=== PATIENT | female | born 1975 | race Caucasian/White ===

== ENCOUNTER → 2021-06-30 07:10 | Outpatient (CLI) | payer OTHER, SELFPAY ==
[2021-06-30 20:28] LABS: SARS-CoV-2 RNA PCR Negative
== END ==
PROVIDERS: PCP Nurse Practitioner Family; Visit Provider Nurse Practitioner Family
DX: J06.9 Acute upper respiratory infection, unspecified (principal); Z20.822 Contact with and (suspected) exposure to COVID-19
CPT/HCPCS: C9803; U0003; U0005

== ENCOUNTER 2022-01-26 16:37 | Outpatient (CLI) | payer OTHER, SELFPAY ==
--- NOTE | ~2022-01-26 | MM_ITS ---
EXAMINATION: MM screening denita BI w darby HISTORY: Screening TECHNIQUE: Craniocaudal and mediolateral oblique 3-D tomosynthesis images were obtained and synthetic 2-D images were generated. CAD analysis was submitted and interpreted. COMPARISON: No prior mammogram is available for comparison at this institution. BREAST PARENCHYMAL COMPOSITION: The breasts are extremely dense, which lowers the sensitivity of mamm ography. FINDINGS: There is no evidence of suspicious mass, calcification, or architectural distortion to sugg est malignancy in either breast. There has been no suspicious interval change. IMPRESSION: 1. No mammographic evidence of malignancy. 2. Recommend routine screening mammography in one year. BI-RADS Category 1: Negative Reviewed, dictated and finalized at location A.
== END 2022-01-26 16:38 | disposition home or self-care (01) ==
LOC: ANHIMG 16:38
PROVIDERS: PCP Nurse Practitioner Family; Visit Provider Nurse Practitioner Obstetrics & Gynecology
DX: Z12.31 Encounter for screening mammogram for malignant neoplasm of breast (principal)
CPT/HCPCS: 77063; 77067

== ENCOUNTER 2024-12-31 14:31 | Emergency (ER) | payer OTHER, SELFPAY ==
[2024-12-31 14:38] VITALS: BP 120/75; PULSE 88; RESP 20; TEMP 36.6; O2SAT 98
--- NOTE | 2024-12-31 14:54 | ED.SKABFB ---
HPI - Skin/Abscess/Foreign Bdy General Chief complaint: Skin/Abscess/Foreign Body Stated complaint: Rash on Arm Time Seen by Provider: 12/31/24 14:55 Source: patient and RN notes reviewed Mode of arrival: ambulatory Limitations: no limitations History of Present Illness HPI narrative: 49-year-old female presents with concern for a red area on her right upper arm. Reports that started as an itchy spot on Tuesday in the became so more swollen, hard, red. She noticed today it was warm. She has applied hydrocortisone and Benadryl spray without relief. She denies fever, body aches, chills, sweats. Denies fluctuation or drainage. MD complaint: other (redness) Related Data Home Medications ?Medication ?Instructions ?Recorded ?Confirmed ?Last Taken ?Type levocetirizine 5 mg tablet mg 12/31/24 Unknown History omeprazole 40 mg capsule,delayed mg 12/31/24 Unknown History release venlafaxine 75 mg capsule,extended mg PO 12/31/24 Unknown History release 24 hr Allergies Allergy/AdvReac Type Severity Reaction Status Date / Time Dermabond Allergy Unknown Unknown Uncoded 12/31/24 14:42 Review of Systems Review of Systems: CONSTITUTIONAL: Denies malaise, chills, sweats, or fever. EYES: Denies redness, or discharge. ENT: Denies rhinorrhea, congestion, swollen lips, swollen tongue CARDIOVASCULAR: Denies chest pain, palpitations, or edema. RESPIRATORY: Denies cough or dyspnea. GASTROINTESTINAL: Denies abdominal pain, nausea, vomiting SKIN: Reports red, warm, tender spot on her right arm MUSCULOSKELETAL: Denies joint pain or myalgia. NEUROLOGIC: Denies headache. All systems reviewed & are unremarkable except as noted in HPI and below PMFSH Comments At time of signature, agree with nursing past medical, surgical, social and family history. There is no relevant family history pertinent to the presenting complaint Exam Narrative: GENERAL: Well-appearing, well-nourished, and in no acute distress. HEAD: Normocephalic, atraumatic. EYES: PERRLA, conjunctivae clear, and EOMI. ENT: Mucous membranes moist. Oropharynx without edema, erythema or lesions. NECK: Supple. No lymphadenopathy CHEST: Clear to auscultation. No respiratory distress. HEART: Regular rate and rhythm. SKIN: Warm, dry. Proximally 5 cm area in diameter of redness, warmth, mild induration and tenderness noted to the right upper arm, no fluctuation noted NEURO: Alert and oriented x3. PSYCH: Normal mood and affect Course Course Emergency Course: Patient is aware of diagnosis, understands and agrees to treatment plan. Anticipatory guidance given. Patient agrees to follow-up as directed and is aware of reasons to seek care at the emergency department. Portions of this record may have been created with voice recognition software Level of Care: Express Care Visit Vital Signs Vital signs: Vital Signs Temperature 97.8 F 12/31/24 14:38 Pulse Rate 88 12/31/24 14:38 Respiratory Rate 20 12/31/24 14:38 Blood Pressure 120/75 12/31/24 14:38 Pulse Oximetry 98 12/31/24 14:38 Oxygen Delivery Room Air 12/31/24 14:38 Temperature 97.8 F 12/31/24 14:38 Pulse Rate 88 12/31/24 14:38 Respiratory Rate 20 12/31/24 14:38 Blood Pressure 120/75 12/31/24 14:38 Pulse Oximetry 98 12/31/24 14:38 Oxygen Delivery Room Air 12/31/24 14:38 Reviewed. MDM - Skin/Abscess/Foreign Bdy MDM Narrative Medical decision making narrative: Does not appear at this time to be erythema multiforme, bullous, SJS, TEN; no evidence at this time to suggest RMSF, endocarditis or Lyme disease; patient looks well, nontoxic and is tolerating oral intake; no neurologic signs or symptoms; no headache, photophobia or neck pain; afebrile; appropriate for initial outpatient treatment; discussed the importance of follow-up, patient agrees; question, viral exanthema, contact dermatitis, allergic dermatitis, eczema, urticaria, cellulitis, abscess. No soft palate or uvula edema, no tongue, lip edema or other mucosal involvement, no respiratory compromise, no stridor, no wheezing, no wheezing, no history of syncope, no hypotension, no nausea, vomiting, or diarrhea. Instructed patient to go to nearest ER immediately for any worsening symptoms including but not limited to: fever, spreading rash, pain, sore throat, headache, dizziness, chest pain, trouble breathing, or any symptoms concerning to the patient. Critical Care Time Critical Care Time Critical Care Time: No Discharge Plan Discharge Clinical Impression: Cellulitis Patient Disposition: Home Condition: Stable Instructions: Antibiotic Form, Cellulitis (ED) Additional Instructions: Please follow up with your Primary Care Doctor within 48-72 hours - call for an appointment. Rest and elevate affected area; apply moist heat 3-4 times daily for 10-15 minutes. Take Motrin 600mg every 8 hours with food for pain. Please take Antibiotics as directed. If you experience any worsening redness, swelling, streaking (red lines), fever or chills please go to the ER Patient Language: Kazakh Prescriptions: New penicillin V potassium 500 mg tablet 500 mg PO Q12H 10 Days Qty: 20 0RF No Action venlafaxine 75 mg capsule,extended release 24hr PO omeprazole 40 mg capsule,delayed release(DR/EC) levocetirizine 5 mg tablet Follow-up/Referrals: Andrea,Monlaisa Kirkpatrick APN [Primary Care Provider] - Time of Disposition: 14:58
--- OUTSIDE RECORDS SUMMARY | 2024-12-31 15:41 | XMS_ITS | Clinical Summary ---
Author Organization [facility] [employer] Address [address] [place] [address] Care Team Providers Care Road Conductor Name Role Phone Elsy Mishra Idris ALONSO-AGILE TESTER Primary Care Provider Source Comments [facility],non-owned Affiliates and Associated Physician Practices is amultiple site organization consisting of ambulatory clinics and hospital sitesin [place], [place], [place] and [place]. This disclosure is being madepursuant to the Care Everywhere program and may not contain all information available regarding this patient. Last updated 18.[facility] Allergies Active Allergy Reactions Criticality Noted Date Comments Allergy Urticaria,Rash Medium 11/02/2016 Surgical Glue/Dermabond Medications * Be aware that medications may not be up to date on this document. Alwaysverify current medications with the patient. Calcium Carb-Cholecalcif ye 600-800 MG-UNIT Take 1 tablet by mouth once daily 3 Active diphenhydrAMINE (Benadryl) 25 MG capsule Take 25 mg by mouth every 6 hours as needed Active estradiol (ESTRACE) 1 MG tablet Take 1 mg by mouth once daily 5 8 Active estrogens, conjugated, (Premarin) 0.625 MG/GM vaginal cream Insert 1 Dose into the vagina as needed 8 Active fluticasone propionate (FLONASE) 50 MCG/ACT nasal spray [place] 1 spray into each nostril 2 times daily as needed 8 Active vedolizumab (Entyvio) injection 300 mg by Intravenous route Every 8 Weeks Active clobetasol (TEMOVATE) 0.05 % gel Apply to affected area once daily as needed 7 Active Bioflavonoid Products (BIOFLEX PO) once daily Active B Complex Vitamins (VITAMIN B COMPLEX PO) Take by mouth once daily 7 Active acyclovir (ZOVIRAX) 400 MG tablet 0 Active benzonatate (TESSALON) 100 MG capsule TAKE 1 CAPSULE BY MOUTH THREE TIMES A DAY NEEDED 0 Active cetirizine (ZYRTEC) 10 MG tablet Take 10 mg by mouth once daily 0 Active colestipol (COLESTID) 1 GM tablet Take 2 (two) tablets by mouth 3 times daily Max per day : 8 tabs 240 tablet 5 1 Active estradiol (CLIMARA) 0.025 MG/24HR patch estradiol 0.025 mg/24 hr weekly transdermal patch APPLY 1 PATCH TO THE SKIN ONCE WEEKLY (REMOVE OLD PATCH PRIOR TO APPLYING NEW PATCH) Active ibuprofen (MOTRIN) 200 MG tablet Take 200 mg by mouth every 6 hours as needed Active Melatonin 10 MG Acti ve fish oil/omega-3 fatty acids (PROMEGA;CARDI-O GABY 3) 1000 MG capsule Take 2 g by mouth once daily Active colestipol (COLESTID) 1 GM tablet Take 2 g by mouth once daily 1 Active polyethylene glycol (GOLYTELY) 236 g solution Drink 1/2 of prep at 6pm the night before test. Finish the prep at 4 am the morning of colonoscopy. 4000 mL 2 Active diphenoxylate-at ropine (LOMOTIL) 2.5-0.025 MG tabletIndication s:Other ulcerative colitis with complication (HCC) Take 2 (two) tablets by mouth 4 times daily as needed for Diarrhea 240 tablet 1 2 Active Active Problems Problem Noted Date Diagnosed Date UC (ulcerative colitis) 10/03/2018 Immunizations Immunization Administration Dates Next Due FLU VACCINE TRI IIV3 SPLIT P F IM (FLUVIRIN) 06/09/2017,06/24/2015,05/07/2014,2012 INFLUENZA VACCINE, QUADR. (F LUZONE; FLULAVAL; FLUARIX; AFLURIA QUADRIVALENT; 6MO+), 0.5 ML (IIV4) 09/17/2020 PNEUMOCOCCAL PPSV23 11/13/2021,06/28/2013 Pneumococcal Pcv13 Conj 12/02/2016 Family History Medical History Relation Name Comments Hypertension Father Cancer - Breast Maternal Grandmother Cancer - Colon Maternal Uncle COPD - Chronic Obstructive Pulmonary Disease Mother Osteoporosis Mother Relation Name Status Comments Brother 1 Alive Brother 2 Alive Father Alive Maternal Grandmother Maternal Uncle Mother Alive Sister Alive Social History Tobacco Use Types Packs/Day Years Used Date Smoking Tobacco: Never Smokeless Tobacco: Never Alcohol Use Standard Drinks/Week Comments Yes 1 (1 standard drink = 0.6 oz pur e alcohol) once a week Comments No Sex and Gender Information Value Date Recorded Sex Assigned at Not on file Legal Sex 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 Gender Identity Not on file Sexual Orientation Not on file Last Filed Vital Signs Vital Sign Reading Time Taken Comments Blood Pressure 98/56 02/25/2022 12:00 PM CDT Pulse 88 02/25/2022 12:00 PM CDT Temperature 36.7 C (98 F) 02/25/2022 11:30 AM CDT Respiratory Rate 10 02/25/2022 12:00 PM CDT Oxygen Saturation 98% 02/25/2022 12:00 PM CDT Inhaled Oxygen Concentration - - Weight 57.7 kg (127 lb 3.2 oz) 02/25/2022 9:34 A M CDT Height 167.6 cm (5' 6) 02/25/2022 9:34 AM CDT Body Mass Index 20.53 02/25/2022 9:34 AM CDT Plan of Treatment Health Maintenance Due Date Last Done Comments COLOGUARD (AGES 45-75) - COLON CA SCREENING 1973 CT COLONOGRAPHY - COLON CA SCREENING 1973 FIT - COLON CA SCREENING 1973 FLEX SIG - COLON CA SCREENING 1973 MAMMOGRAM 1973 PAP SMEAR 1973 HIV SCREENING 1988 HEPATITIS C SCREENING 08/24/1991 DTAP/TDAP/TD VACCINES (1 - Tdap) 1992 HEPATITIS B VACCINE (1 of 3 - 19+ 3-dose series) 1992 ZOSTER VACCINE (1 of 2) 2023 COVID-19 VACCINE (1 - 2023-25 season) 2024 DEPRESSION SCREENING 07/25/2024 INFLUENZA VACCINE (Season Ended) 2025 09/17/2020, 06/09/2017, 06/24/2015, Additional history exists LIPID TESTING 09/01/2026 09/01/2021 PNEUMOCOCCAL VACCINE 50+ (3 of 3 - PCV20 or PCV21) 11/13/2026 11/13/2021, 12/02/2016, 06/28/2013 COLON MONITORING 05/17/2029 05/17/2019, 05/17/2019 COLONOSCOPY - COLON CA SCREENING 05/17/2029 05/17/2019, 05/17/2019 Colorectal Cancer Screening 05/17/2029 HIB VACCINE Aged Out No longer eligi ble based on patient's age to complete this topic HPV VACCINE Aged Out No longer eligi ble based on patient's age to complete this topic MENINGOCOCCAL (Group B) VACCINE SHARED DECISION-MAKING Aged Out No longer eligible based on patient's age to complete this topic MENINGOCOCCAL GROUPS A/C/Y/W VACCINE Aged Out No longer eligible based on patient's age to complete this topic Goals Goal Patient Goal Type Associated Problems Recent Progress Patient-Stated? Author Medication Management General On track( 022 2:49 PM CDT) Rhoda Cleary, RN Note: Expected end date: ongoing Interventions: Take all medications as prescribed Let your doctor know right away about any changes in your medications Make sure to request a refill of your medication at least one week prior to your last dose Procedures Procedure Name Priority Date/Time Associated Diagnosis Comments ENDOSCOPY, COLON, DIAGNOSTIC Routine 05/17/2019 1:22 PM CDT from Last 3 Months or Most Recently Relevant to Health Maintenance Results * ENDOSCOPY, COLON, DIAGNOSTIC (05/17/2019 1:22 PM CDT) Report Endoscopy POC Endoscopy Department Report _ Patient Name: Js Llamas Procedure Date: 05/17/2019 1:22 PM Date of : 1975 Classification: Outpatient Gender: Female Ethnicity: Not or Race: White _ Providers: Pricilla Hernandez MD Referring MD: Procedure: Flexible Sigmoidoscopy Indications: Personal history of ulcerative colitis Medications: Monitored Anesthesia Care Description of Procedure: Pre-Anesthesia Assessment: - Prior to the procedure, a History and Physical was performed, and patient medications and allergies were reviewed. The patient's tolerance of previous anesthesia was also reviewed. The risks and benefits of the procedure and the sedation options and risks were discussed with the patient. All questions were answered, and informed consent was obtained. Prior Anticoagulants: The patient has taken no previous anticoagulant or antiplatelet agents. ASA Grade Assessment: II - A patient with mild systemic disease. After reviewing the risks and benefits, the patient was deemed in satisfactory condition to undergo the procedure. After obtaining informed consent, the endoscope was passed under direct vision. Throughout the procedure, the patient's blood pressure, pulse, and oxygen saturations were monitored continuously. The [id number]-[id number] was introduced through the anus and advanced to the ileo-rectal anastomosis. The flexible sigmoidoscopy was accomplished without difficulty. The patient tolerated the procedure well. The quality of the bowel preparation was good. Findings: The 2cm rectal cuff had a single ulcer with surrounding polyposis. biopsied The ileal pouch appeared healthy and normal. Biopsied. Estimated Blood Loss: Estimated blood loss was minimal. Complications: No immediate complications. Impression: - Ulcerative colitis Cufitis. biopsied - Normal appearing ileal pouch. biopsied Recommendation: - Await path - [facility] Attending Participation: I personally performed the entire procedure. Procedure Code(s): --- Professional --- 49381, Sigmoidoscopy, flexible; with biopsy, single or multiple Diagnosis Code(s): --- Professional --- K51.90, Ulcerative colitis, unspecified, without complications Z87.19, Personal history of other diseases of the digestive system CPT copyright 2016 [employer]. All rights reserved. The codes documented in this report are preliminary and upon acoustical tile drill press operator review may be revised to meet current compliance requirements. __ Pricilla Hernandez MD 05/17/2019 2:30:10 PM Note Initiated On: 05/17/2019 1:22 PM Number of Addenda: 0 [facility] [address] [place] [address] [facility] 05/17/2019 1:22 PM CDT us Pricilla Hernandez MD GI PROCEDURE ORDERABLES E dited Result - Final [facility] [employer] from Last 3 Months or Most Recently Relevant to Health Maintenance Insurance MEDICAID - [employer] MEDICAID - OUT OF STATE Care Teams Road Conductor Relationship Specialty Start Date End Date Elsy Mishra, TELESALES ADVISOR-AGILE TESTER [address] [facility] [address] Patel [address] [place] [address] [phone] PCP - General 11/12/21
--- OUTSIDE RECORDS SUMMARY | 2024-12-31 15:41 | XMS_ITS | Encounter Summary ---
Author Organization [facility] Address [address] [place] [address] Phone Care Team Providers Care Government Sales Manager Name Role Phone Pricilla Hernandez MD Unavailable [phone] Monalisa Mendez NP Primary Care Provider [phone] Encounter Details Date Type Department Care Team (Late st Contact Info) Description 12/24/2024 Results Follow-Up [facility] Gastroenterology [address] [facility] [facility] 12[address] [place] [address] [place] [address] Jose Rajput MD [address] [place] [address] Surgical pathology Social History Tobacco Use Types Packs/Day Years Used Date Smoking Tobacco: Never Smokeless Tobacco: Never Alcohol Use Standard Drinks/Week Comments Yes 0 (1 standard drink = 0.6 oz pur e alcohol) socially AUDIT-C Answer Date Recorded Q1: How often do you have a drink containing alc ohol? 2-4 times a month 12/21/2024 Q2: How many drinks containi ng alcohol do you have on a typical day when you are drinking? 1 or 2 12/21/2024 Q3: How often do you have si x or more drinks on one occasion? Never 12/21/2024 Personal Safety Answer Date Recorded Have you ever been in or are you currently in a harmful physical or emotional relationship or is someone making you feel afraid or unsafe? Denies 12/21/2024 Comments No Sex and Gender Information Value Date Recorded Sex Assigned at Not on file Legal Sex Female 12:19 AM VIDEO PRODUCTION INTERN Gender Identity Not on file Sexual Orientation Not on file documented as of this encounter Miscellaneous Notes * Result Encounter Note - Jose Rajput MD - 12/24/2024 3:24 PM CDT Pouch biopsies are essentially normal. Repeat in 3 years. EGD shows reflux changes. Use PPI as prescribed. documented in this encounter Plan of Treatment Not on file documented as of this encounter Visit Diagnoses Not on filedocumented in this encounter Care Teams Government Sales Manager Relationship Specialty Start Date End Date Mendez, Monalisa Hess NP [address] [place] [address] PCP - General 02/05/21 Pricilla Hernandez MD Referring Physician Gastroenterology 08/21/18 documented as of this encounter
--- OUTSIDE RECORDS SUMMARY | 2024-12-31 15:41 | XMS_ITS | Clinical Summary ---
Author Organization [facility] al Address [address] [place] [address] Care Team Providers Care Photographic Process Attendant Name Role Phone Pricilla Hernandez MD Unavailable [phone] Monalisa Mendez NP Primary Care Provider [phone] Allergies Active Allergy Reactions Criticality Noted Date Comments Unclassified Drug Hives,Rash High 11/02/2016 Surgical Glue/Dermabond Medications vit A-[id number] mg tablet daily. Active calcium carbonate-vitami n D3 1,500 mg (600 mg elemental)-800 unit tablet,chewable 2 times daily. 013 Active colestipol (COLESTID) 1 gram tablet TAKE ONE TABLET BY MOUTH UP TO THREE TIMES A DAY 017 Active PREMARIN vaginal cream 5 018 Active hyoscyamine (LEVSIN) 0.[address] 1 tablet (0.125 mg total) under the tongue every 4 hours as needed Active valACYclovir (VALTREX) 1 gram tablet TAKE 1 TABLET(S) EVERY 12 HOURS BY ORAL ROUTE FOR 5 DAYS. 017 Active cholecalciferol (VITAMIN D-3) 2000 unit capsule PT STATES SHE TAKES 8444-9680 UNITS DAILY Active olopatadine (PATADAY) 0.2 % ophthalmic solutionIndicati ons:Allergic rhinitis, unspecified seasonality, unspecified trigger Administer 1 drop into both eyes daily. 2.5 mL 11 019 Active Additional Information Patient not taking.Reported on 10/30/2024 estradiol (ESTRACE) 1 mg tablet Take 1 tablet (1 mg total) by mouth daily Active cetirizine (ZyrTEC) 10 mg tablet Take 1 tablet (10 mg total) by mouth daily as needed for allergies Active diphenhydrAMINE (BENADRYL) 25 mg capsule Take 1 tablet/capsule (25 mg total) by mouth every 6 (six) hours as needed for itching Active sodium chloride (OCEAN) 0.65 % nasal spray Administer 2 sprays into each nostril 4 (four) times a day. 104 mL 019 Active methylPREDNISolo ne (MEDROL DOSEPACK) 4 mg Dosepack follow package directions 21 tablet 019 Active Additional Information Patient not taking.Reported on 11/15/2024 traMADol (ULTRAM) 50 mg tablet Take 1 tablet (50 mg total) by mouth every 6 (six) hours 20 tablet 019 Active cephalexin (KEFLEX) 500 mg capsule TAKE 1 PILL BY MOUTH 3 TIMES DAILY 023 Active venlafaxine XR (EFFEXOR-XR) 37.5 mg 24 hr capsule Take by mouth daily 022 Active mesalamine (CANASA) 1,000 mg suppositoryIndic ations:Ulcerativ e Proctitis Insert 1 suppository (1,000 mg total) into the rectum nightly for 14 days 14 suppository 023 Active loperamide (IMODIUM A-D) 2 mg tablet Take 2 tablets (4 mg total) by mouth 4 (four) times a day 240 tablet 5 023 Active fluticasone propionate (FLONASE) 50 mcg/actuation nasal spray 023 Active nystatin-triamci nolone ointmentIndicati ons:cutaneous candidiasis Apply topically 2 (two) times a day as needed (perianal skin rash) 15 g 024 Active hydrocortisone (ANUSOL-HC) 25 mg suppositoryIndic ations:Chronic ulcerative proctitis without complications (HCC) Nightly for 5 days then every other day 12 suppository 024 Active vedolizumab (ENTYVIO) 300 mg recon solnIndications: Chronic ulcerative proctitis without complications (HCC) Infuse 5 mL (300 mg total) into a venous catheter every 6 (six) weeks Infused at: [facility] 5 mL 2 024 Active diphenoxylate-at ropine (LOMOTIL) 2.5-0.025 mg per tabletIndication s:Chronic ulcerative proctitis without complications (HCC) Take 2 tablets by mouth 4 (four) times a day as needed for diarrhea 240 tablet 024 Active levocetirizine (XYZAL) 5 mg tablet 025 Active venlafaxine XR (EFFEXOR-XR) 75 mg 24 hr capsule 025 Active naproxen (NAPROSYN) 500 mg tablet 025 Active omeprazole (PriLOSEC) 40 mg capsule Take 1 capsule (40 mg total) by mouth daily 30 capsule 3 025 Active omeprazole (PriLOSEC) 40 mg capsule Take 1 capsule (40 mg total) by mouth daily 3 018 2024 Discontinued Active Problems Problem Noted Date Diagnosed Date Rectal cuffitis 10/30/2024 Assessment & Plan (10/30/2024 5:38 PM CDT): We will get the patient scheduled for a repeat pouchoscopy as she has not had a procedures since her dose was adjusted . This will also allow us to see if there is a reason for her bloating. We may need to adjust her antidiarrheal regimen if pouchoscopy is reassuring. Esophageal dysphagia 10/30/2024 Assessment & Plan (10/30/2024 5:35 PM CDT): . The patient reports bloating, nausea, cough and early satiety. We will repeat an EGD at the same time as her pouchoscopy. If there are no obvious findings, it may be reasonable to repeat a gastric emptying study as she had mild gastroparesis in the past. She is encouraged to eat small meals more frequently Chronic cough 10/30/2024 Assessment & Plan (10/30/2024 5:37 PM CDT): We will see if the patient has any GERD findings on her EGD. If no she may wish she returned to her PCP and ENT for evaluation. Screening for viral disease 05/17/2024 High risk medications (not anticoagulants) long- term use 05/01/2024 Assessment & Plan (10/30/2024 5:35 PM CDT): We will continue to monitor her labs with her infusions. Assessment & Plan (05/01/2024 3:08 PM CDT): All immunosuppressants carry a theoretical risk of infection, though vedolizumab appears the safest because it is gut specific. We recommend the patient get all available vaccinations, including the pneumococcus series, covid19 and annual influenza. We monitor CBC and HFP q 3 months for cytopenias and hepatotoxicity. Sprain of deltoid ligament of right ankle 2018 Pelvic pain 08/02/2018 Allergic rhinitis 07/28/2018 Assessment & Plan (09/26/2018 1:17 PM PHYSIATRIST): Sinus Rinse followed by Flonase 2 sprays into each nostril while looking down over the sink, do not sniff in or blow nose after use. Follow up in 2 months Consider Zyrtec daily (cetirizine) 10 mg daily Assessment & Plan (07/28/2018 1:58 PM PHYSIATRIST): CT Sinus per [facility] Protocol Try to continue Flonase Start cetirizine 10 mg daily Pataday one drop into each eye before using contacts then change to milder contact solution Warm compresses to neck or heating pad that has been turned off Chronic sphenoidal sinusitis 06/23/2018 Assessment & Plan (09/26/2018 1:16 PM PHYSIATRIST): Sinus Rinse followed by Flonase 2 sprays into each nostril while looking down over the sink, do not sniff in or blow nose after use. Follow up in 2 months Consider Zyrtec daily (cetirizine) 10 mg daily Assessment & Plan (09/15/2018 1:50 PM PHYSIATRIST): Finish Antibiotics Continue nasal saline 4 times daily and as needed Increase hydration Sinus Rinse at least once if not twice daily. Follow up in one week Assessment & Plan (07/28/2018 1:58 PM PHYSIATRIST): CT Sinus per [facility] Protocol Try to continue Flonase Start cetirizine 10 mg daily Pataday one drop into each eye before using contacts then change to milder contact solution Warm compresses to neck or heating pad that has been turned off Assessment & Plan (06/23/2018 7:14 PM PHYSIATRIST): Flonase 2 sprays into each nostril while looking down over the sink, do not sniff in or blow nose after use. Unable to get in touch by either phone number to Dr. 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 Year symptoms began: 2007. Distribution: Extensive (E3). Extraintestinal manifestations: none. Complications: medically refractory disease. 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 Current treatment: vedolizumab q 6. 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 diagnosed in December of 2007, previously treated with Humira (primary nonresponse), 6-MP (no improvement), azathioprine (poorly tolerated), Pentasa and topical mesalamine (limited response) and multiple courses of steroids and ultimately underwent a total proctocolectomy with a J-pouch in early 2014. After her J-pouch she had some mild symptoms of pouchitis and cuffitis that were treated with Xifaxan, Flagyl, and Canasa with partial response. On her 2015 pouchoscopy patient had a normal perianal exam and had a 3 cm cuff that unfortunately demonstrated significant cuffitis and was correlated with her symptoms of hematochezia and discomfort in her pouch. The patient was started on Entyvio November 2016, and her most recent pouchoscopy done in April of 2017 demonstrated a normal pouch, and an MRE that was done in April of 2017 also demonstrated a completely normal small bowel as well as a pouch. Her flexible sigmoidoscopy in March 03, 2022 had shown some mild distal cuffitis. Symptomatically she felt like she was losing responsiveness in 2021. Her vedolizumab trough level in August 2022 was 22. Her most recent pouchoscopy from 05/27/2023 showed a normal pouch and pre pouch ileum but fairly significant cuffitis. 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 She has had recurrent symptoms of cuffitis and pouchitis since including hematochezia, discomfort, bloating, cramping, and urgency. She is currently on vedolizumab infusions - frequency was recently decreased to every 6 weeks in sight of breakthrough disease activity. Her most recent pouchoscopy (05/27/2024) was notable for significant cuffitis, normal pouch and pre-pouch ileum. Currently she states that her symptoms are better controlled, her urgency has entirely resolved. She has mild cramping and bloating which she attributes to familial stressors. Her next infusion is scheduled for 05/03/2024, denies any complications or concerns post infusion. Plan: Continue q6 week vedolizumab infusions with in person follow up in 6 months Encounters Date Type Department Care Team Description 12/24/2024 3:15 PM CDT Therapy [facility] [place] [address] [id number] Gema Hinson, PT Chronic bilateral low back pain with bilateral sciatica (Primary Dx); Sciatica, right side 12/24/2024 Plan of Care Documentation [facility] [place] [id number] 12/24/2024 Results Follow-Up [facility] [address] [place] [address] [place] [address] Jose Rajput MD Surgical pathology 12/21/2024 12:00 PM CDT - 12/21/2024 1:00 PM CDT Surgery [facility] [id number] [address] [place] [id number] Jose Rajput MD POUCHOSCOPY BIOPSY 12/21/2024 11:10 AM CDT Anesthesia Event [facility] [id number] [address] [place] [address] Arnulfo Ojeda MD 12/21/2024 10:39 AM CDT - 12/21/2024 12:24 PM CDT Hospital Encounter [facility] [id number] [place] [id number] Jose Rajput MD Rectal cuffitis; Esophageal dysphagia; Chronic cough Discharge Disposition: Discharge to home or self care 12/12/2024 1:00 PM CDT Infusion [facility] [address] [place] [address] High risk medications (not anticoagulants) long-term use (Primary Dx); Chronic ulcerative proctitis with complication (HCC) 11/12/2024 4:34 PM CDT - 11/12/2024 11:59 PM CDT Hospital Encounter [address] [address] Sciatica, left side Discharge Disposition: Discharge to home or self care 10/31/2024 1:00 PM CDT Infusion [facility] [address] [place] [address] Chronic ulcerative proctitis with complication (HCC) (Primary Dx) 10/30/2024 8:30 AM CDT Office Visit [facility] [address] [place] [phone] Keturah Helm NP Rectal cuffitis (Primary Dx); Esophageal dysphagia; Chronic cough; High risk medications (not anticoagulants) long-term use 10/24/2024 7:10 AM CDT Lab [address] [address] Chronic ulcerative proctitis with complication (HCC); High risk medications (not anticoagulants) long-term use; Screening for viral disease 10/09/2024 Orders Only [facility] [address] [place] [address] [address] [place] [address] Megha Cline RN from Last 3 Months Immunizations Immunization Administration Dates Next Due Influenza, Quadrivalent, Hig h Dose, Preservative Free, Intrr 09/08/2022 Influenza, Trivalent, Preser vative Free, Intramuscular 06/09/2017,06/24/2015,05/07/2014,06/28 Pneumococcal Conjugate PCV 13 12/02/2016 Pneumococcal Polysaccharide PPV23 06/28/2013 Surgical History Surgery Date Site/Laterality Comments COLON SURGERY 07/25/2014 - 07/24/2015 CHOLECYSTECTOMY ABDOMINAL SURGERY HYSTERECTOMY EYE SURGERY Lasik COLONOSCOPY SINUS SURGERY 07/25/2018 - 07/24/2019 Medical History Medical History Date Comments Ulcerative colitis without c omplications (HCC) Ulcerative colitis without complications, unspecified location - (Added by TW Conv) Ulcerative colitis without c omplications (HCC) Ulcerative pancolitis - (Add ed by TW Conv) Anemia Pancreatitis Chronic diarrhea Family History Medical History Relation Name Comments Brain cancer Maternal Grandfather Brain t umor - (Added by TW Conv) Cancer Maternal Grandfather Family history of malignant neoplasm - (Added by TW Conv) Lung cancer Maternal Grandfather Family history of lung cancer - (Added by TW Conv) Prostate cancer Maternal Grandfather Fami ly history of malignant neoplasm of prostate - (Added by TW Conv) Skin cancer Maternal Grandfather Family history of skin cancer - (Added by TW Conv) Brain cancer Maternal Grandmother Brain t umor - (Added by TW Conv) Stroke Maternal Grandmother Family history of cerebrovascular accident - (Added by TW Conv) Cancer Mother Family history of malignant neoplasm - (Added by TW Conv) Osteoporosis Mother Family history of osteoporosis - (Added by TW Conv) Colon cancer Mother's Brother 1 Family hi story of colon cancer - 11/08/13-EW (Added by TW Conv) Prostate cancer Mother's Brother 2 Family history of malignant neoplasm of prostate - (Added by TW Conv) Lung cancer Mother's Brother 3 Family hi story of lung cancer - (Added by TW Conv) Brain cancer Mother's Brother 4 Brain elizabeth or - (Added by TW Conv) Hypertension Paternal Grandmother Family history of hypertension - (Added by TW Conv) Stroke Paternal Grandmother Family history of cerebrovascular accident - (Added by TW Conv) Relation Name Status Comments Maternal Grandfather Maternal Grandmother Mother Mother's Brother 1 Mother's Brother 2 Mother's Brother 3 Mother's Brother 4 Paternal Grandmother Social History Tobacco Use Types Packs/Day Years [...] on file Legal Sex Female 12:19 AM PHYSIATRIST Gender Identity Not on file Sexual Orientation Not on file Obstetrics History Last Filed Vital Signs Vital Sign Reading Time Taken Comments Blood Pressure 120/88 12/21/2024 12:10 PM CDT Pulse 75 12/21/2024 12:10 PM CDT Temperature 36.3 C (97.3 F) 12/21/2024 11:39 AM CDT Respiratory Rate 26 12/21/2024 12:10 PM CDT Oxygen Saturation 100% 12/21/2024 12:10 PM CDT Inhaled Oxygen Concentration - - Weight 67.6 kg (149 lb) 12/21/2024 10:47 AM CDT Height 167.6 cm (5' 6) 12/21/2024 10:47 AM CDT Body Mass Index 24.05 12/21/2024 10:47 AM CDT Plan of Treatment Health Maintenance Due Date Last Done Comments Depression Screening 1975 Hepatitis C Screening 1975 DTaP/Tdap/Td Vaccine (1 - Tdap) 1984 Regular Well Visit/Exam 18-64 1991 Breast Cancer Screening-Mammogram 02/09/2023 02/09/2022, 10/18/2017, 09/07/2016 Zoster Vaccine (1 of 2) 2023 Covid-19 Vaccine ( - season) 2024 07/10/2021, 10/18/2020, 09/20/2020 Colon Cancer Screening-Colonoscopy 07/24/2024 07/24/2014, 09/14/2012 Influenza Vaccine (Season Ended) 2025 09/08/2022, 07/10/2021, 09/17/2020, Additional history exists Pneumococcal vaccine <65 Aged Out 022, 12/02/2016, 06/28/2013 No longer eligible based on patient's age to complete this topic Hepatitis B Screening Completed 10/24/2024 Procedures Procedure Name Priority Date/Time Associated Diagnosis Comments POUCHOSCOPY 12/21/2024 11:24 AM CDT SURGICAL PATHOLOGY Routine 12/21/2024 11:20 AM CDT Rectal cuffitis Esophageal dysphagia Chronic cough ESOPHAGOGASTRODUODENOSCOPY BIOPSY 12/21/2024 11:10 AM CDT Rectal cuffitis Esophageal dysphagia Chronic cough POUCHOSCOPY BIOPSY 12/21/2024 11:10 AM CDT Rectal cuffitis Esophageal dysphagia Chronic cough EGD 12/21/2024 11:06 AM CDT EGFR Routine 12/12/2024 1:05 PM CDT High risk medications (not anticoagulants) long-term use Chronic ulcerative proctitis with complication (HCC) DIFFERENTIAL AUTO Routine 12/12/2024 1:05 PM CDT CBC WITH AUTO DIFFERENTIAL Routine 12/12 1:05 PM CDT COMPREHENSIVE METABOLIC PANEL Routine 1:05 PM CDT High risk medications (not anticoagulants) long-term use Chronic ulcerative proctitis with complication (HCC) CRP (ACUTE PHASE) Routine 12/12/2024 1:05 PM CDT Chronic ulcerative proctitis with complication (HCC) XR SPINE LUMBAR 2 OR 3 VIEWS Schedule Routine, Read Routine (OP Routine) 11/12/2024 4:43 PM CDT Sciatica, left side EGFR Routine 10/24/2024 7:20 AM CDT High risk medications (not anticoagulants) long-term use Chronic ulcerative proctitis with complication (HCC) DIFFERENTIAL AUTO Routine 10/24/2024 7:20 AM CDT High risk medications (not anticoagulants) long-term use Chronic ulcerative proctitis with complication (HCC) TB TEST, QUANTIFERON GOLD Routine 2024 7:20 AM CDT CBC WITH AUTO DIFFERENTIAL Routine 10/24 7:20 AM CDT High risk medications (not anticoagulants) long-term use Chronic ulcerative proctitis with complication (HCC) COMPREHENSIVE METABOLIC PANEL Routine 7:20 AM CDT High risk medications (not anticoagulants) long-term use Chronic ulcerative proctitis with complication (HCC) CRP (ACUTE PHASE) Routine 10/24/2024 7:20 AM CDT Chronic ulcerative proctitis with complication (HCC) HEPATITIS B CORE ANTIBODY, TOTAL Routine 10/24/2024 7:20 AM CDT High risk medications (not anticoagulants) long-term use Chronic ulcerative proctitis with complication (HCC) Screening for viral disease HEPATITIS B SURFACE ANTIBODY (IMMUNE STATUS) Routine 10/24/2024 7:20 AM CDT High risk medications (not anticoagulants) long-term use Chronic ulcerative proctitis with complication (HCC) Screening for viral disease HEPATITIS B SURFACE ANTIGEN Routine 08/2024 7:20 AM CDT High risk medications (not anticoagulants) long-term use Chronic ulcerative proctitis with complication (HCC) Screening for viral disease SCREENING MAMMOGRAM Routine 10/18/2017 1:12 PM CDT COLONOSCOPY REPORT 07/24/2014 from Last 3 Months or Most Recently Relevant to Health Maintenance Results * Pouchoscopy (12/21/2024 11:24 AM CDT) Anatomical Region Laterality Modality Other Narrative Procedure Note Jose Rajput MD - 12/21/2024 11:24 AM CDT ENDOSCOPY LAB Patient Name: Js Diamond Procedure Date: 12/21/2024 11:24 AM Date of : 1975 Admit Type: Outpatient Age: 49 Gender: Female Attending MD: Jose Rajput M.D. Room: [facility] ENDOSCOPY ROOM 05 Note Status: Finalized Procedure: Pouchoscopy Indications: History of total proctocolectomy, Inflammatorybowel disease Providers: Jose Rajput M.D. Referring MD: Jose Rajput M.D. Medicines: Monitored Anesthesia Care Complications: No immediate complications. Estimated Blood Loss: Estimated blood loss was minimal. Procedure: Pre-Anesthesia Assessment: - Immediately prior to administration ofmedications, the patient was re-assessed for adequacy to receive sedatives. After obtaining informed consent, the endoscope was passed under direct vision. Throughout theprocedure, the patient's blood pressure, pulse, and oxygen saturations were monitored continuously. The [id number] was introduced through theileoanal anastomosis via the anus and advanced to theileoanal pouch and into the hieu-terminal ileum. Theprocedure was performed without difficulty. The patient tolerated the procedure well. Findings: Patient is status-post total colectomy with an ileal pouch-anal anastomosis. The hieu-terminal ileum appeared normal. The ileoanal pouch contained one sessile polyp. The polyp was 12 mmin diameter. Biopsies were taken with a cold forceps for histology. An area of mucosa in the rectal cuff was mildly friable. Biopsieswere taken with a cold forceps for histology. The remainder of the exam in the terminal ileum was normal. Impression: - The examined portion of the ileum was normal. - One polyp in the ileoanal pouch. Biopsied. - Friability in the rectal cuff. Biopsied. Recommendation: - Await pathology results. - Repeat post-surgical lower GI endoscopy in 3years for surveillance. - - Contact Information: During normal business hours - Please call theNurse Coordinator: [phone]. After hours, evening, nights, weekends and holidays- Please call the hospital agricultural equipment operator at and ask for the GI fellow combination saw operator. Attending Participation: I personally performed the entire procedure. Electronically signed by Jose Rajput MD Jose Rajput M.D. 12/21/2024 11:36:03 AM Number of Addenda: 0 Note Initiated On: 12/21/2024 11:24 AM us Jose Rajput MD ENDOSCOPY PROCEDURES Final Result * Surgical pathology (12/21/2024 11:20 AM CDT) Tissue (EG Junction, Biopsy) 12/21/2024 11:20 AM CDT Tissue specimen (specimen) (Colon, Biopsy) 12/21/2024 11:28 AM CDT Tissue specimen (specimen) (Polyp(s), colon/colorectal, esophageal, gastric) 12/21/2024 11:31 AM CDT Narrative PATHOLOGY [facility] - 12/24/2024 3:04 PM CDT EPIC results best viewed via link to PDF [facility] [place] [address] [place] [address] Note to Patients: This report may contain a detailed description of human tissue sent by a health care provider to the laboratory for pathologic evaluation. The content of this report is essential for diagnosis and may provide important critical findings. This information may be unfamiliar to patients to review without a medical professional present. It is advised that the patient review this report in the presence of a health care provider who can answer questions and explain the details. SURGICAL PATHOLOGY REPORT FINAL Patient Name: SJ DIAMOND Gender: F : 1975 (Age: 49) Address: [address] [place] [address] Hospital #: [id number] Taken:12/21/2024 Received:12/21/2024 Reported: 12/24/2024 Patient Type: [facility] SAME Client [facility] Service: Gastro Location: Physician(s): Jo Ann Wright NP Diagnosis: A. GE junction, biopsy - Scant superficial columnar type mucosa with mild chronic inflammation and marked reactive changes - Negative for intestinal metaplasia, dysplasia, or malignancy B. Rectum, cuff, biopsy - Villous enteric mucosa, favor small intestinal/pouch mucosa, with mild acute nonspecific enteritis - No significant histologic features of chronicity - Negative for dysplasia or granulomas C. Small bowel, ileal polyp, biopsy - Small intestinal mucosa with no histopathologic abnormality - Negative for dysplasia or granulomas [facility]/12/24/2024 15:04 By this signature, I attest that the above diagnosis is based upon my personal examination of the slides(and/or other material indicated in the diagnosis). Laith Macario M.D. Report Electronically Reviewed and Signed Out By Laith Macario M.D. 12/24/2024 15:04:37 Katerin Hernández M.D. History: The patient is a 49-year-old woman with rectal cuff itis, esophageal dysphagia, chronic cough. Operative procedure: Pouchoscopy and EGD. Specimen(s) Received: A: Ge junction biopsies B: Rectal cuff biopsies C: Ileal polyp biopsies Gross Description: Received in three formalin jars labeled with the patient's identifiers. A. Labeled GE junction biopsies are two irregular tissue fragment(s) (measuring 1.0 x 0.4 x 0.1 cm in aggregate. Stained with eosin). Labeled A1. Jar 0. B. Labeled rectal cuff biopsies are two irregular tissue fragment(s) (measuring 0.8 x 0.4 x 0.1 cm in aggregate. Stained with eosin). Labeled B1. Jar 0. C. Labeled ileal polyp biopsies is a single irregular tissue fragment(s) (measuring 0.7 x 0.4 x 0.1 cm. Stained with eosin). Labeled C1. Jar 0. cnewho/12/21/2024 13:16 PA(s): SHUBHAM Kilpatrick By this signature, I attest that the above diagnosis is based upon my personal examination of the slides(and/or other material). Addenda/Procedures Microscopic slide review and interpretation for this case was performed at [facility], Department of Surgical Pathology, [address] [facility], [place] [id number], [place] [address] CLIA # [id number] The performance characteristics of some immunohistochemical stains, fluorescence in-situ hybridization tests and immunophenotyping by flow cytometry cited in this report (if any) were determined by the Surgical Pathology and Flow Cytometry Departments at [facility] as part of an ongoing quality assurance director program and in compliance with federally mandated regulations drawn from the Clinical Laboratory Improvement Act of 1988 (CLIA '88). Some of these tests rely on the use of analyte specific reagents and are subject to specific labeling requirements by the US Food and Drug Administration. Such diagnostic tests may only be performed in a facility that is certified by the Department of Health and Human Services as a high complexity laboratory under CLIA '88. The FDA has determined that such clearance or approval is not necessary. This test is used for clinical purposes. It should not be regarded as investigational or for research. Nevertheless, federal rules concerning the medical use of analyte specific reagents require that the following disclaimer be attached to the report: This test was developed and its performance characteristics determined by the Surgical Pathology and Flow Cytometry Departments of [facility]. It has not been cleared or approved by the U. S. Food and Drug Administration. IMAGES AND SCANNED DOCUMENTS, IF INCLUDED, ONLY VIEWABLE IN PDF VERSION OF REPORT us Jose Rajput MD LAB PATHOLOGY ORDERABLES Fi [facility] Result PATHOLOGY [facility] [phone] * EGD (12/21/2024 11:06 AM CDT) Anatomical Region Laterality Modality Other Narrative Procedure Note Jose Rajput MD - 12/21/2024 11:06 AM CDT ENDOSCOPY LAB Patient Name: Js Diamond Procedure Date: 12/21/2024 11:06 AM Date of : 1975 Admit Type: Outpatient Age: 49 Gender: Female Attending MD: Jose Rajput M.D. Room: [facility] ENDOSCOPY ROOM 05 Note Status: Finalized Procedure: Upper GI endoscopy Indications: Abdominal bloating, Nausea Providers: Jose Rajput M.D. Referring MD: Jose Rajput M.D. Medicines: Monitored Anesthesia Care Complications: No immediate complications. Estimated Blood Loss: Estimated blood loss was minimal. Procedure: After obtaining informed consent, the endoscope was passed under direct vision. Throughout theprocedure, the patient's blood pressure, pulse, and oxygen saturations were monitored continuously. The [id number] was introduced through the mouth,and advanced to the second part of duodenum. The upperGI endoscopy was accomplished without difficulty. The patient tolerated the procedure well. Findings: LA Grade A (one or more mucosal breaks less than 5 mm, not extending between tops of 2 mucosal folds) esophagitis with nodular mucosa was found. Biopsies were taken with a cold forceps for histology. The entire examined stomach was normal. The examined duodenum was normal. Impression: - LA Grade A esophagitis. Biopsied. - Normal stomach. - Normal examined duodenum. Recommendation: - Await pathology results. - Use a proton pump inhibitor PO BID. - Perform a flexible sigmoidoscopy today. Attending Participation: I personally performed the entire procedure. Electronically signed by Jose Rajput MD Jose Rajput M.D. 12/21/2024 11:41:12 AM Number of Addenda: 0 Note Initiated On: 12/21/2024 11:06 AM us Jose Rajput MD ENDOSCOPY PROCEDURES Final Result * eGFR (12/12/2024 1:05 PM CDT) eGFR >90 >=60 mL/min/1. 73 m2 Comment: Interpretive Data Reference Interval Normal >/= 90 mL/min/1.73m2 Mildly decreased* 60 - 89 mL/min/1.73m2 Mildly to moderately decreased 45 - 59 mL/min/1.73m2 Moderately to severely decreased 30 - 44 mL/min/1.73m2 Severely decreased 15 - 29 mL/min/1.73m2 Kidney Failure < 15 mL/min/1.73m2 *Relative to young adult level Estimated glomerular filtration rate is determined by the 2020 CKD-EPI equation recommended by the National Kidney Foundation (A Unifying Approach to GFR Estimation: Recommendations of the NKF-ASK Task Force on Reassessing the Inclusion of Race in Diagnosing Kidney Disease, JASN 2020). The CKD-EPI equation should not be used for patients with unstable renal function and has not been validated in children and those over 70. Current interpretive data was last reviewed 2021. Testing performed by: [place], [address] Blood 12/12/2024 1:05 PM CDT 12/12/2024 1:30 PM CDT Jose Rajput MD LAB BLOOD ORDERABLES Final Result [facility] ([place]) 1 [facility] Department [place] [address] * Differential, auto (12/12/2024 1:05 PM CDT) Neutrophil abs 3.88 1.50 - 6.50 K/cumm Comment:Testing performed by : [place], [address] Imm gran abs 0.01 0.00 - 0.10 K/cumm [facility] ([place]) Comment:Testing performed by : [place], [address] Lymphocyte abs 1.90 0.80 - 3.30 K/cumm [facility] ([place]) Comment:Testing performed by : [place], [address] Monocyte abs 0.55 0.20 - 0.80 K/cumm [facility] ([place]) Comment:Testing performed by : [place], [address] Eosinophil abs 0.11 0.00 - 0.50 K/cumm [facility] ([place]) Comment:Testing performed by : [facility], [place], [address] Basophil abs 0.07 0.00 - 0.10 K/cumm [facility] ([place]) Comment:Testing performed by : [place], [address] Neutrophil pct 59.5 % [facility] ([place]) Comment: Interpretive Data Percent cell count reference ranges are not reported, since discordance with absolute values may lead to misinterpretation of CBC data. Current Interpretive Data was last revised on 2017. Testing performed by: [facility], [facility], [place], [address] Imm gran pct 0.2 % [facility] ([place]) Comment: Interpretive Data Percent cell count reference ranges are not reported, since discordance with absolute values may lead to misinterpretation of CBC data. Current Interpretive Data was last revised on 2017. Testing performed by: [place], [address] Lymphocyte pct 29.1 % [facility] ([place]) Comment: Interpretive Data Percent cell count reference ranges are not reported, since discordance with absolute values may lead to misinterpretation of CBC data. Current Interpretive Data was last revised on 2017. Testing performed by: [place], [address] Monocyte pct 8.4 % [facility] ([place]) Comment: Interpretive Data Percent cell count reference ranges are not reported, since discordance with absolute values may lead to misinterpretation of CBC data. Current Interpretive Data was last revised on 2017. Testing performed by: [facility], [place], [address] Eosinophil pct 1.7 % [facility] ([place]) Comment: Interpretive Data Percent cell count reference ranges are not reported, since discordance with absolute values may lead to misinterpretation of CBC data. Current Interpretive Data was last revised on 2017. Testing performed by: [place], [address] Basophil pct 1.1 % [facility] ([place]) Comment: Interpretive Data Percent cell count reference ranges are not reported, since discordance with absolute values may lead to misinterpretation of CBC data. Current Interpretive Data was last revised on 2017. Testing performed by: [place], [address] Blood 12/12/2024 1:05 PM CDT 12/12/2024 1:54 PM CDT us Jose Rajput MD LAB BLOOD ORDERABLES Final Result [facility] ([place]) 1 [facility] Department [place] [address] * CBC with auto differential (12/12/2024 1:05 PM CDT) WBC 6.52 3.80 - 9.90 K/cumm Comment:Testing performed by : [place], [address] Hgb 14.0 11.9 - 15.5 g/dL [facility] ([place]) Comment:Testing performed by : [place], [address] Hct 41.3 35.6 - 45.5 % [facility] ([place]) Comment:Testing performed by : [place], [place], Plt 338 150 - 400 K/cumm [facility] ([place]) Comment:Testing performed by : [place], [address] MPV 10.1 9.1 - 12.3 fL [facility] ([place]) Comment:Testing performed by : [place], [address] RBC 4.57 3.90 - 5.20 M/cumm [facility] ([place]) Comment:Testing performed by : [place], [address] MCV 90.4 81.3 - 96.4 fL [facility] ([place]) Comment:Testing performed by : [place], [address] MCH 30.6 27.1 - 33.3 pg [facility] ([place]) Comment:Testing performed by : [place], [address] MCHC 33.9 32.3 - 35.7 g/dL [facility] ([place]) Comment:Testing performed by : [facility], [facility], [place], [address] RDW CV 13.0 11.1 - 14.9 % [facility] ([place]) Comment:Testing performed by : [facility], [facility], [place], [address] RDW SD 43.1 35.7 - 48.1 fL [facility] ([place]) Comment:Testing performed by : [facility], [facility], [place], [address] NRBC abs 0.00 0.00 - 0.01 K/cumm [facility] ([place] Comment:Testing performed by : [facility], [place], [address] Blood 12/12/2024 1:05 PM CDT 12/12/2024 1:54 PM CDT us Jose Rajput MD LAB BLOOD ORDERABLES Final Result Performing Organization Address City[facility]/ZIP Co de Phone Number [facility] ([place]) [address] [place] [address] Department [place] [address] * CRP (acute phase) (12/12/2024 1:05 PM CDT) CRP <3.0 <=10.0 mg/L Comment:Testing performed by : [place], [address] Blood 12/12/2024 1:05 PM CDT 12/12/2024 1:30 PM CDT us Jose Rajput MD LAB BLOOD ORDERABLES Final Result [facility] ([place]) [address] [place] [address] Department [place] [address] * Comprehensive metabolic panel (12/12/2024 1:05 PM CDT) Sodium 137 135 - 145 mmol/L Comment:Testing performed by : [facility], [place], [address] Potassium, pl 4.3 3.3 - 4.9 mmol/L [facility] ([place]) Comment:Testing performed by : [facility], [place], [address] Chloride 100 97 - 110 mmol/L [facility] ([place]) Comment:Testing performed by : [facility], [facility], [place], [address] CO2 24 22 - 32 mmol/L [facility] ([place]) Comment:Testing performed by : [facility], [place], [address] Anion gap 13 2 - 15 mmol/L [facility] ([place]) Comment:Testing performed by : [facility], [facility], [place], [address] BUN 9 6 - 25 mg/dL [facility] ([place]) Comment:Testing performed by : [facility], [place], [address] Creatinine 0.68 0.60 - 1.10 mg/dL [facility] ([place]) Comment:Testing performed by : [facility], [place], [address] Glucose 89 70 - 199 mg/dL [facility] ([place]) Comment: Interpretive Data Fasting glucose >/= 126 mg/dl is diagnostic for diabetes. Fasting is defined as no caloric intake for at least 8 hours. Fasting glucose between 100 mg/dl to 125 mg/dl is diagnostic of prediabetes. In a patient with classic symptoms of hyperglycemia or hyperglycemic crisis, a random glucose >/= 200 mg/dl is diagnostic for diabetes. In the absence of unequivocal hyperglycemia, results should be confirmed by repeat testing. The classification and Diagnosis of Diabetes Diabetes Care 2021; 46: S19-S40. Current interpretive data was last revised 2022. Testing performed by: [facility], [place], [address] Calcium 9.6 8.5 - 10.3 mg/dL [facility] ([place]) Comment:Testing performed by : [facility], [place], [address] Bilirubin, total 0.2 0.1 - 1.2 mg/dL [facility] ([place]) Comment:Testing performed by : [facility], [place], [address] Protein, pl 7.3 6.5 - 8.5 g/dL [facility] ([place]) Comment:Testing performed by : [facility], [facility], [place], [address] Albumin 4.2 3.5 - 5.0 g/dL [facility] ([place]) Comment:Testing performed by : [facility], [facility], [place], [address] Alk phos 73 40 - 130 Units/L [facility] ([place]) Comment:Testing performed by : [facility], [place], [address] ALT 18 7 - 45 Units/L [facility] ([place]) Comment:Testing performed by : [facility], [facility], [place], [address] AST 25 10 - 45 Units/L [facility] ([place]) Comment: Slightly Hemolyzed Specimen Testing performed by: [facility], [place], [address] Blood Venous blood specimen / Unknown 12/12/2024 1:05 PM CDT 12/12/2024 1:30 PM CDT Jose Rajput MD LAB BLOOD ORDERABLES Final Result [facility] ([place]) 1 [facility] Department [place] [address] * XR Spine Lumbar 2 or 3 Views (11/12/2024 4:43 PM CDT) Anatomical Region Laterality Modality Spine N/A Computed Radiogr aphy 11/14/2024 2:03 PM CDT Narrative 11/14/2024 2:04 PM CDT EXAM DESCRIPTION: XR SPINE LUMBAR 2 OR 3 VIEWS REASON FOR STUDY: pain in hip LBP x 1 month pain radiating to right hip initially but now bilaterally No known injury, no surgery FINDINGS: Three views submitted with comparison 02/28/2014. No acute fracture. Mild L2-L3 degenerative disc disease. Inferior lumbar facet osteoarthritis is present. IMPRESSION: Mild L2-L3 degenerative disc disease with inferior lumbar facet osteoarthritis. THIS IS AN ELECTRONICALLY VERIFIED FINAL REPORT 11/14/2024 2:04 PM - Electronically signed by Johann Maravilla M.D. MF: ANSON Report ID: [id number] Reading Location: [id number] Procedure Note Johann Maravilla MD - 11/14/2024 EXAM DESCRIPTION: XR SPINE LUMBAR 2 OR 3 VIEWS REASON FOR STUDY: pain in hip LBP x 1 month pain radiating to right hip initially but now bilaterallyNo known injury, no surgery FINDINGS: Three views submitted with comparison 02/28/2014. No acute fracture. Mild L2-L3 degenerative disc disease. Inferior lumbar facet osteoarthritis is present. IMPRESSION: Mild L2-L3 degenerative disc disease with inferior lumbar facet osteoarthritis. THIS IS AN ELECTRONICALLY VERIFIED FINAL REPORT 11/14/2024 2:04 PM - Electronically signed by Johann Maravilla M.D. MF: ANSON Report ID: [id number] Reading Location: [id number] Monalisayvette Mendez [employer] IMG XR PROCEDURES Final Resu lt * eGFR (10/24/2024 7:20 AM CDT) eGFR >90 >=60 mL/min/1. 73 m2 Comment: Interpretive Data Reference Interval Normal >/= 90 mL/min/1.73m2 Mildly decreased* 60 - 89 mL/min/1.73m2 Mildly to moderately decreased 45 - 59 mL/min/1.73m2 Moderately to severely decreased 30 - 44 mL/min/1.73m2 Severely decreased 15 - 29 mL/min/1.73m2 Kidney Failure < 15 mL/min/1.73m2 *Relative to young adult level Estimated glomerular filtration rate is determined by the 2020 CKD-EPI equation recommended by the National Kidney Foundation (A Unifying Approach to GFR Estimation: Recommendations of the NKF-ASK Task Force on Reassessing the Inclusion of Race in Diagnosing Kidney Disease, JASN 2020). The CKD-EPI equation should not be used for patients with unstable renal function and has not been validated in children and those over 70. Current interpretive data was last reviewed 2021. Blood 10/24/2024 7:20 AM CDT 10/24/2024 8:13 AM CDT us Jose Rajput MD LAB BLOOD ORDERABLES Final Result [facility] ([place]) 1 [facility] Department [place] [address] * Differential, auto (10/24/2024 7:20 AM CDT) Neutrophil abs 2.87 1.50 - 6.50 K/cumm Imm gran abs 0.02 0.00 - 0.10 K/cumm [facility] ([place]) Lymphocyte abs 2.00 0.80 - 3.30 K/cumm [facility] ([place]) Monocyte abs 0.38 0.20 - 0.80 K/cumm [facility] ([place]) Eosinophil abs 0.08 0.00 - 0.50 K/cumm [facility] ([place]) Basophil abs 0.07 0.00 - 0.10 K/cumm [facility] ([place]) Neutrophil pct 52.9 % [facility] ([place]) Comment: Interpretive Data Percent cell count reference ranges are not reported, since discordance with absolute values may lead to misinterpretation of CBC data. Current Interpretive Data was last revised on 2017. Imm gran pct 0.4 % [facility] ([place]) Comment: Interpretive Data Percent cell count reference ranges are not reported, since discordance with absolute values may lead to misinterpretation of CBC data. Current Interpretive Data was last revised on 2017. Lymphocyte pct 36.9 % [facility] ([place]) Comment: Interpretive Data Percent cell count reference ranges are not reported, since discordance with absolute values may lead to misinterpretation of CBC data. Current Interpretive Data was last revised on 2017. Monocyte pct 7.0 % [facility] ([place]) Comment: Interpretive Data Percent cell count reference ranges are not reported, since discordance with absolute values may lead to misinterpretation of CBC data. Current Interpretive Data was last revised on 2017. Eosinophil pct 1.5 % [facility] ([place]) Comment: Interpretive Data Percent cell count reference ranges are not reported, since discordance with absolute values may lead to misinterpretation of CBC data. Current Interpretive Data was last revised on 2017. Basophil pct 1.3 % [facility] ([place]) Comment: Interpretive Data Percent cell count reference ranges are not reported, since discordance with absolute values may lead to misinterpretation of CBC data. Current Interpretive Data was last revised on 2017. Blood 10/24/2024 7:20 AM CDT 10/24/2024 7:40 AM CDT us Jose Rajput MD LAB BLOOD ORDERABLES Final Result [facility] ([place]) 1 [facility] Department [place] [address] * TB test, quantiferon gold (10/24/2024 7:20 AM CDT) [facility] Quantiferon TB Gold Negative Negative [facility] Comment: No interferon-gamma response to M. tuberculosis antigens was detected. Latent infection with M. tuberculosis is unlikely. A single negative result does not exclude infection with M. tuberculosis. In patients at high risk for M.tuberculosis infection, a second test should be considered in accordance with the 2017 ATS/IDSA/CDC Clinical Practice Guidelines for Diagnosis of Tuberculosis in Adults and Children [Lewinsohn DM et. al. Clin. Infect. Dis. 2017;64(2):111-115]. The reference range for the 'TB1 Ag minus Nil Result' and 'TB2 Ag minus Nil Result' is an Interferon-gamma level <0.35 IU/mL. TB-Nil 0.03 IUnits/mL [facility] ([place]) TB2-Nil 0.03 IUnits/mL [facility] ([place]) Mitogen-Nil 9.98 IUnits/mL [facility] ([place]) NIL 0.02 IUnits/mL [facility] ([place]) Comment: Test Performed by: [address] [address] Metal Loader: Shanda Hankins Ph.D.; CLIA# [id number] Blood 10/24/2024 7:20 AM CDT 10/24/2024 7:40 AM CDT Jose Rajput MD LAB BLOOD ORDERABLES Final Result [facility] ([place]) 1 [facility] Department [place] [address] [facility] ref Lab * CBC with auto differential (10/24/2024 7:20 AM CDT) Pathologist [facility] WBC 5.42 3.80 - 9.90 K/cumm Hgb 13.4 11.9 - 15.5 g/dL [facility] ([place]) Hct 39.8 35.6 - 45.5 % [facility] ([place]) Plt 315 150 - 400 K/cumm [facility] ([place]) MPV 10.2 9.1 - 12.3 fL [facility] ([place]) RBC 4.48 3.90 - 5.20 M/cumm [facility] ([place]) MCV 88.8 81.3 - 96.4 fL [facility] ([place]) MCH 29.9 27.1 - 33.3 pg [facility] ([place]) MCHC 33.7 32.3 - 35.7 g/dL [facility] ([place]) RDW CV 13.2 11.1 - 14.9 % [facility] ([place]) RDW SD 43.0 35.7 - 48.1 fL [facility] ([place]) NRBC abs 0.00 0.00 - 0.01 K/cumm [facility] ([place]) Blood 10/24/2024 7:20 AM CDT 10/24/2024 7:40 AM CDT us Jose Rajput MD LAB BLOOD ORDERABLES Final Result [facility] ([place]) 1 [facility] [place] [address] * Hepatitis B core antibody, total Blood (10/24/2024 7:20 AM CDT) Hep B core IgG/IgM Nonreactive Nonreactive Comment:Testing performed by : [facility], [address] [facility] [place]., [address] Blood 10/24/2024 7:20 AM CDT 10/24/2024 9:59 AM CDT Jose Rajput MD LAB MICROBIOLOGY - GENERAL ORDERABLES Final Result Performing Organization Address City[facility] Co de Phone Number [facility] ([place]) 1 [facility] [employer] [place] [address] * Hepatitis B surface antibody (immune status) Blood (10/24/2024 7:20 AM CDT) HBsAb (immune status) Nonreactive Comment: Interpretive Data Nonreactive: This result is consistent with a lack of immunity to Hepatitis B Virus when used in the setting of routine screening. Equivocal: The immune status of the individual should be further assessed, if appropriate, after consideration of clinical status, risk factors, and additional diagnostic information. Reactive: This result is consistent with immunity to Hepatitis B Virus when used in the setting of routine screening. Current interpretive data was last revised on 19. Testing performed by: [address] [address] Blood 10/24/2024 7:20 AM CDT 10/24/2024 9:54 AM CDT Jose Rajput MD LAB MICROBIOLOGY - GENERAL ORDERABLES Final Result Performing Organization Address [facility] Co de Phone Number [facility] ([place]) 1 [facility] [employer] [place] [address] * Hepatitis B Surface Antigen Blood (10/24/2024 7:20 AM CDT) Pathologist [facility] HepBsAg Nonreactive Nonreactive Comment:Testing performed by : [address] [address] Blood 10/24/2024 7:20 AM CDT 10/24/2024 9:54 AM CDT Jose Rajput MD LAB MICROBIOLOGY - GENERAL ORDERABLES Final Result [facility] ([place]) 1 [facility] [place] [address] * CRP (acute phase) (10/24/2024 7:20 AM CDT) CRP <3.0 <=10.0 mg/L Blood 10/24/2024 7:20 AM CDT 10/24/2024 7:40 AM CDT Jose Rajupt MD LAB BLOOD ORDERABLES Final Result Performing Organization Address [facility] Co de Phone Number [facility] ([place]) [address] [place] [address] * Comprehensive metabolic panel (10/24/2024 7:20 AM CDT) Sodium 140 135 - 145 mmol/L Potassium, pl 4.2 3.3 - 4.9 mmol/L [facility] ([place]) Chloride 104 97 - 110 mmol/L [facility] ([place]) CO2 24 22 - 32 mmol/L [facility] ([place]) Anion gap 12 2 - 15 mmol/L [facility] ([place]) BUN 12 6 - 25 mg/dL [facility] ([place]) Creatinine 0.74 0.60 - 1.10 mg/dL [facility] ([place]) Glucose 85 70 - 199 mg/dL [facility] ([place]) Comment: Interpretive Data Fasting glucose >/= 126 mg/dl is diagnostic for diabetes. Fasting is defined as no caloric intake for at least 8 hours. Fasting glucose between 100 mg/dl to 125 mg/dl is diagnostic of prediabetes. In a patient with classic symptoms of hyperglycemia or hyperglycemic crisis, a random glucose >/= 200 mg/dl is diagnostic for diabetes. In the absence of unequivocal hyperglycemia, results should be confirmed by repeat testing. The classification and Diagnosis of Diabetes Diabetes Care 2021; 46: S19-S40. Current interpretive data was last revised 2022. Calcium 9.3 8.5 - 10.3 mg/dL [facility] ([place]) Bilirubin, total 0.3 0.1 - 1.2 mg/dL [facility] ([place]) Protein, pl 7.0 6.5 - 8.5 g/dL [facility] ([place]) Albumin 4.1 3.5 - 5.0 g/dL [facility] ([place]) Alk phos 70 40 - 130 Units/L [facility] ([place]) ALT 17 7 - 45 Units/L [facility] ([place]) AST 22 10 - 45 Units/L [facility] ([place]) Blood Venous blood specimen / Unknown 10/24/2024 7:20 AM CDT 10/24/2024 7:40 AM CDT us Jose Rajput MD LAB BLOOD ORDERABLES Final Result [facility] ([place]) [address] [place] [address] Department [place] [address] * Screening Mammogram (10/18/2017 1:12 PM CDT) Anatomical Region Laterality Modality Breast N/A Mammography 10/18/2017 1:12 PM CDT Narrative 10/21/2017 2:41 PM CDT KHOI MALDONADO M.D. FINAL REPORT ACC# Date Time Exam [id number] Oct 18, 2017 08:12:00 [facility] [id number] [facility] Mamm yasmine [employer] CAD Technologist(s): Taya Alberts; ; EXAMINATION: Mammogram Technique: Bilateral Full-Field Digital Screening Mammogram was performed. Views obtained: bilateral craniocaudal and bilateral mediolateral oblique. Computer Aided Detection was performed. Mammogram Findings: The present examination has been compared to prior imaging studies performed on 11/19/2011 and 01/15/2013, and at [facility] on 09/07/2016. The breasts are heterogeneously dense, which may obscure small masses. There is no suspicious abnormality in either breast. IMPRESSION: Annual screening mammography is recommended. OVERALL FINAL ASSESSMENT: BI-RADS CATEGORY 1: Negative. Requested By: Elsy Pisano Dictated By: KHOI MALDONADO M.D. on Oct 21 2017 9:41A This document has been electronically signed by: KHOI MALDONADO M.D. on Oct 21 2017 9:41A [id number] MALDONADO M.D. FINAL REPORT Attending: ELSY PISANO Requesting: Elsy Pisano Requesting Fax: Attending Fax: Attending ID: [id number] Requesting ID: [id number] Report To 1 ID: [id number] Report To 1 Name: , Report To 1 FAX: NextGen Order #: Procedure Note Miscellaneous, Not In File - 10/21/2017 KHOI MALDONADO M.D. FINAL REPORT ACC# Date Time Exam [id number] Oct 18, 2017 08:12:00 [facility] [id number] Scr Mamm yasmine 2v inc CAD Technologist(s): Taya Alberts; ; EXAMINATION: Mammogram Technique: Bilateral Full-Field Digital Screening Mammogram was performed. Views obtained: bilateral craniocaudal and bilateral mediolateral oblique. Computer Aided Detection was performed. Mammogram Findings: The present examination has been compared to prior imaging studies performed on 11/19/2011 and 01/15/2013, and at [facility] on 09/07/2016. The breasts are heterogeneously dense, which may obscure small masses. There is no suspicious abnormality in either breast. IMPRESSION: Annual screening mammography is recommended. OVERALL FINAL ASSESSMENT: BI-RADS CATEGORY 1: Negative. Requested By: Elsy Pisano Dictated By: KHOI MALDONADO M.D. on Oct 21 2017 9:41A This document has been electronically signed by: KHOI MALDONADO M.D. on Oct 21 2017 9:41A [id number] MALDONADO M.D. FINAL REPORT Attending: ELSY PISANO Requesting: Elsy Pisano Requesting Fax: Attending Fax: Attending ID: [id number] Requesting ID: [id number] Report To 1 ID: [id number] Report To 1 Name: , Report To 1 FAX: NextGen Order #: Elsy Pisano [employer] IMG MAMMO PROCEDURES Final R esult * COLONOSCOPY REPORT (07/24/2014) Anatomical Region Laterality Modality Other Narrative 07/24/2014 Ordered by an unspecified provider. us Historical Provider GI PROCEDURE ORDERABLES F inal Result from Last 3 Months or Most Recently Relevant to Health Maintenance Insurance [facility] MED[facility] [employer] Advance Directives For more information, please contact: [phone] * Full Code (Latest Code Status on File) Date Activated Date Inactivated Comments 12/21/2024 10:47 AM 12/21/2024 4:29 PM * Full Code Date Activated Date Inactivated Comments 05/26/2023 7:57 AM 05/26/2023 1:57 PM Care Teams Photographic Process Attendant Relationship Specialty Start Date End Date Monalisa Mendez NP [address] [place] [address] PCP - General 02/05/21 Pricilla Hernandez MD Referring Physician Gastroenterology 08/21/18
--- OUTSIDE RECORDS SUMMARY | 2024-12-31 15:41 | XMS_ITS | Data Portability ---
Author Organization [facility] Address [address] [place] [address] Care Team Providers Care Digester Hand Name Role Phone LEE, NICOLE Primary Care Provider [phone] Assessment Encounter Date Assessment Date Assessment LastModified by Organization Details LastModified Time 09/01/2021 09/01/2021 Annual gynecological exam performed. Patient will come back in a year unless there are new symptoms. Not available 09/01/2021 09:54:02 Plan of Treatment Reminders Order Date Submit Date Provider Last Modified By Organization Details Last Modified Time Details Appointments None recorded. Lab lipid panel, blood 2021 022 [facility] (Lab), [address] [place], [address], 2 05:24:34 CMP, serum or plasma 2021 022 [facility] (Lab), [address] [place], [address], 2 05:24:34 CBC w/ auto diff 2021 022 [facility] (Lab), [address] [place], [address], 2 05:24:33 vitamin D, 25-hydroxy, total, serum 2021 022 [facility] (Lab), [address], [place], [address], 2 05:24:36 HbA1c (hemoglobin A1c), blood 2021 [facility] (Lab), [address], [place], [address], 05:24:36 TSH, serum or plasma 2021 [facility] (Lab), [address], [place], [address], 2 05:24:35 vitamin B12 + folate, serum or blood 2021 [facility] (Lab), [address], [place], [address], 2 05:24:35 iron + TIBC + ferritin, serum 2021 [facility] (Lab), [address], [place], [address], 2 05:24:35 Referral None recorded. Procedures None recorded. Surgeries None recorded. Imaging None recorded. Medication Orders estradiol 0.025 mg/24 hr weekly transdermal patch 2021 [facility] #[id number], [address] [place], [address], 10:40:48 clobetasol 0.05 % topical gel 2021 [facility] #[id number], [address] [place], [address], 10:37:06 Patient TargetsNo targets recorded. Patient InstructionsNo instructions recorded. Reason for Referral None Reported. Results Created Date Observation Date Name Description Value Unit Range Abnormal Flag Note LastModifiedBy Organization Detail LastModifiedTime 09/01/19 22 09/01/2021 CBC W/DIF F WBC 6.0 10'3/ uL 3.6-10 .2 Not Available [facility] (Lab) [address], [place], [address], 09/02/2021 05:24:33 09/01/19 22 09/01/2021 CBC W/DIF F RBC 4.60 10'6/ uL (based on docume nted legal sex) 4.10-5 .30 Not Available [facility] (Lab) [address], [place], [address], 09/02/2021 05:24:33 09/01/19 22 09/01/2021 CBC W/DIF F HGB 14.2 g/dL (based on docume nted legal sex) 11.9-1 5.8 Not Available [facility] (Lab) [address], [place], [address], 09/02/2021 05:24:33 09/01/19 22 09/01/2021 CBC W/DIF F HCT 43.3 % (based on docume nted legal sex) 37.4-4 8.3 Not Available [facility] (Lab) [address], [place], [address], 09/02/2021 05:24:33 09/01/19 22 09/01/2021 CBC W/DIF F MCV 94.0 fL 82.0-9 9.0 Not Available [facility] (Lab) [address], [place], [address], 09/02/2021 05:24:33 09/01/19 22 09/01/2021 CBC W/DIF F MCH 31.0 pg 27.0-3 3.0 Not Available [facility] (Lab) [address], [place], [address], 09/02/2021 05:24:33 09/01/19 22 09/01/2021 CBC W/DIF F MCHC 33.0 g/dL 32.0-3 6.0 Not Available [facility] (Lab) [address] [place], [address], 09/02/2021 05:24:33 09/01/19 22 09/01/2021 CBC W/DIF F RDW 13.0 % 11.0-1 5.0 Not Available [facility] (Lab) [address], [place], [address], 09/02/2021 05:24:33 09/01/19 22 09/01/2021 CBC W/DIF F plt 330 10'3/ uL 150-45 0 Not Available [facility] (Lab) [address], [place], [address], 09/02/2021 05:24:33 09/01/19 22 09/01/2021 CBC W/DIF F MPV 10.8 fL 9.8-12 .7 Not Available [facility] (Lab) [address], [place], [address], 09/02/2021 05:24:33 09/01/19 22 09/01/2021 CBC W/DIF F NRBC's 0.00 % 0 Not Available [facility] (Lab) [address], [place], [address], 09/02/2021 05:24:33 09/01/19 22 09/01/2021 CBC W/DIF F absolute NRBCs 0.0 10'3/ uL 0 Not Available [facility] (Lab) [address], [place], [address], 09/02/2021 05:24:33 09/01/19 22 09/01/2021 CBC W/DIF F neutrophils 60.0 % 37.0-7 2.0 Not Available [facility] (Lab) [address], [place], [address], 09/02/2021 05:24:33 09/01/19 22 09/01/2021 CBC W/DIF F lymphocytes 29.0 % 16.0-4 8.0 Not Available [facility] (Lab) [address], [place], [address], 09/02/2021 05:24:33 09/01/19 22 09/01/2021 CBC W/DIF F monocytes 7.0 % 4.0-14 .0 Not Available [facility] (Lab) [address] [place], [address], 09/02/2021 05:24:33 09/01/19 22 09/01/2021 CBC W/DIF F eosinophils 3.0 % 0.0-9. 0 Not Available [facility] (Lab) [address] [facility], [place], [address], 09/02/2021 05:24:33 09/01/19 22 09/01/2021 CBC W/DIF F basophils 1.0 % 0.0-2. 0 Not Available [facility] (Lab) [address] [facility], [place], [address], 09/02/2021 05:24:33 09/01/19 22 09/01/2021 CBC W/DIF F immature granulocytes 0.0 % no define d refere nce range Not Available [facility] (Lab) [address] [facility], [place], [address], 09/02/2021 05:24:33 09/01/19 22 09/01/2021 CBC W/DIF F absolute neutrophils 3.6 10'3/ uL 1.1-6. 0 Not Available [facility] (Lab) [address] [place], [address], 09/02/2021 05:24:33 09/01/19 22 09/01/2021 CBC W/DIF F absolute lymphocytes 1.7 10'3/ uL 0.7-3. 4 Not Available [facility] (Lab) [address] [place], [address], 09/02/2021 05:24:33 09/01/19 22 09/01/2021 CBC W/DIF F absolute monocytes 0.4 10'3/ uL 0.3-1. 0 Not Available [facility] (Lab) [address] [place], [address], 09/02/2021 05:24:33 09/01/19 22 09/01/2021 CBC W/DIF F absolute eosinophils 0.2 10'3/ uL 0.0-0. 6 Not Available [facility] (Lab) [address] [facility], [place], [address], 09/02/2021 05:24:33 09/01/19 22 09/01/2021 CBC W/DIF F absolute basophils 0.1 10'3/ uL 0.0-0. 1 Not Available [facility] (Lab) [address] [facility], [place], [address], 09/02/2021 05:24:33 09/01/19 22 09/01/2021 CBC W/DIF F absolute immature granulocytes 0.00 10'3/ uL 0.00-0 .10 022 2:33 AM: P indic ates parti al resul ts on a panel have been relea sed. Addit ional resul ts will follo w. 022 2:33 AM: This resul t has been final verif ied. No addit ional or mccormick ed resul ts are expec alex. Not Available [facility] (Lab) [address] [facility], [place], [address], 09/02/2021 05:24:33 09/01/19 22 09/01/2021 LIPID PANEL ,AMA (LDL- CALC) total cholesterol 238 mg/dL 0-199 high Not Available [facility] (Lab) [address] [facility], [place], [address], 09/02/2021 05:24:34 09/01/19 22 09/01/2021 LIPID PANEL ,AMA (LDL- CALC) triglyceride s 88 mg/dL 0.00-1 50.00 NCEP Refer ence Value s for Trigl yceri sara: Elayne l: <150 mg/dL Borde rline High: 150 - 199 mg/dL High: 200 - 499 mg/dL Very High: >/= 500 mg/dL Not Available [facility] (Lab) [address] [facility], [place], [address], 09/02/2021 05:24:34 09/01/19 22 09/01/2021 LIPID PANEL ,AMA (LDL- CALC) HDL cholesterol 113 mg/dL >40 Not Available [facility] (Lab) [address] [facility], [place], [address], 09/02/2021 05:24:34 09/01/19 22 09/01/2021 LIPID PANEL ,AMA (LDL- CALC) LDL cholesterol 107 mg/dL 0-99 high Cutof f value s recom alexei d by the Natio nal Breanna stero l [employer]ca tion Progr am: GERMAN ABLE: Breanna stero l <200 mg/dL LDL <100 mg/dL BORDE RLINE : Breanna stero l 200-2 39 mg/dL LDL 101-1 59 mg/dL HIGHE R RISK: Breanna stero l >240 mg/dL LDL >160 mg/dL , HDL <40 mg/dL Not Available [facility] (Lab) [address] [facility], [place], [address], 09/02/2021 05:24:34 09/01/19 22 09/01/2021 LIPID PANEL ,AMA (LDL- CALC) non-HDL cholesterol 125 mg/dL no refere nce range A reaso nable goal for non-H DL breanna stero l is one that is 30 mg/dL highe r than the LDL breanna stero l goal. Not Available [facility] (Lab) [address] [facility], [place], [address], 09/02/2021 05:24:34 09/01/19 22 09/01/2021 LIPID PANEL ,AMA (LDL- CALC) chol/HDL ratio 2.1 . 0.0-5. 0 Not Available [facility] (Lab) [address] [facility], [place], [address], 09/02/2021 05:24:34 09/01/19 22 09/01/2021 CMP(C OMPRE HENSI VE METAB OLIC PANEL ) sodium 138 mmol/ L 133-14 6 Not Available [facility] (Lab) [address] [facility], [place], [address], 09/02/2021 05:24:34 09/01/19 22 09/01/2021 CMP(C OMPRE HENSI VE METAB OLIC PANEL ) potassium 4.5 mmol/ L 3.5-5. 1 Not Available [facility] (Lab) [address] [facility], [place], [address], 09/02/2021 05:24:34 09/01/19 22 09/01/2021 CMP(C OMPRE HENSI VE METAB OLIC PANEL ) chloride 103 mmol/ L 98-107 Not Available [facility] (Lab) [address] [facility], [place], [address], 09/02/2021 05:24:34 09/01/19 22 09/01/2021 CMP(C OMPRE HENSI VE METAB OLIC PANEL ) carbon dioxide 29 mmol/ L 21-31 Not Available [facility] (Lab) [address] [facility], [place], [address], 09/02/2021 05:24:34 09/01/19 22 09/01/2021 CMP(C OMPRE HENSI VE METAB OLIC PANEL ) anion gap 6 mmol/ L 4-13 Not Available [facility] (Lab) [address] [facility], [place], [address], 09/02/2021 05:24:34 09/01/19 22 09/01/2021 CMP(C OMPRE HENSI VE METAB OLIC PANEL ) blood urea nitrogen 10 mg/dL 7-25 Not Available [facility] (Lab) [address] [facility], [place], [address], 09/02/2021 05:24:34 09/01/19 22 09/01/2021 CMP(C OMPRE HENSI VE METAB OLIC PANEL ) creatinine 0.96 mg/dL 0.60-1 .30 Not Available [facility] (Lab) [address] [facility], [place], [address], 09/02/2021 05:24:34 09/01/19 22 09/01/2021 CMP(C OMPRE HENSI VE METAB OLIC PANEL ) egfrcr (CKD-epi 2020) 73 mL/mi n/1.7 3_m2 >=60 Not Available [facility] (Lab) [address], [place], [address], 09/02/2021 05:24:34 09/01/19 22 09/01/2021 CMP(C OMPRE HENSI VE METAB OLIC PANEL ) calcium 10.0 mg/dL 8.3-10 .5 Not Available [facility] (Lab) [address], [place], [address], 09/02/2021 05:24:34 09/01/19 22 09/01/2021 CMP(C OMPRE HENSI VE METAB OLIC PANEL ) glucose 84 mg/dL 70-100 Not Available [facility] (Lab) [address], [place], [address], 09/02/2021 05:24:34 09/01/19 22 09/01/2021 CMP(C OMPRE HENSI VE METAB OLIC PANEL ) protein, total 7.0 g/dL 6.4-8. 3 Not Available [facility] (Lab) [address], [place], [address], 09/02/2021 05:24:34 09/01/19 22 09/01/2021 CMP(C OMPRE HENSI VE METAB OLIC PANEL ) albumin 4.6 g/dL 3.5-5. 0 Not Available [facility] (Lab) [address], [place], [address], 09/02/2021 05:24:34 09/01/19 22 09/01/2021 CMP(C OMPRE HENSI VE METAB OLIC PANEL ) ALT 17 units /L 9-43 Not Available [facility] (Lab) [address], [place], [address], 09/02/2021 05:24:34 09/01/19 22 09/01/2021 CMP(C OMPRE HENSI VE METAB OLIC PANEL ) alkaline phosphatase 54 units /L 34-104 Not Available [facility] (Lab) [address] [facility], [place], [address], 09/02/2021 05:24:34 09/01/19 22 09/01/2021 CMP(C OMPRE HENSI VE METAB OLIC PANEL ) AST 20 units /L 13-39 Not Available [facility] (Lab) [address] [facility], [place], [address], 09/02/2021 05:24:34 09/01/19 22 09/01/2021 CMP(C OMPRE HENSI VE METAB OLIC PANEL ) bilirubin, total 0.6 mg/dL 0.2-1. 2 Not Available [facility] (Lab) [address] [facility], [place], [address], 09/02/2021 05:24:34 09/01/19 22 09/01/2021 TSH, REFLE X FREE T4 TSH 2.05 uIU/m L 0.30-5 .33 Not Available [facility] (Lab) [address] [facility], [place], [address], 09/02/2021 05:24:34 09/01/19 22 09/01/2021 DAVID TIN / IRON / TRANS DAVID N / TIBC iron 161 ug/dL 40-170 Not Available [facility] (Lab) [address] [facility], [place], [address], 09/02/2021 05:24:35 09/01/19 22 09/01/2021 DAVID TIN / IRON / TRANS DAVID N / TIBC transferrin 251 mg/dL 200-36 0 Not Available [facility] (Lab) [address] [facility], [place], [address], 09/02/2021 05:24:35 09/01/19 22 09/01/2021 DAVID TIN / IRON / TRANS DAVID N / TIBC ferritin 22 NG/mL 8-252 Not Available [facility] (Lab) [address] [facility], [place], [address], 09/02/2021 05:24:35 09/01/19 22 09/01/2021 DAVID TIN / IRON / TRANS DAVID N / TIBC TIBC 351 ug/dL 250-45 0 Not Available [facility] (Lab) [address] [place], [address], 09/02/2021 05:24:35 09/01/19 22 09/01/2021 DAVID TIN / IRON / TRANS DAVID N / TIBC iron saturation 46 % 20-55 Not Available [facility] (Lab) [address] [facility], [place], [address], 09/02/2021 05:24:35 09/01/19 22 09/01/2021 VITAM IN B12 / FOLAT E PANEL vitamin B12 303 pg/mL 180-91 4 Elayne l Range : 180-9 14 pg/mL . Indet ermin ate Range : 145-1 80 pg/mL . Defic ient Range : <=145 pg/mL . Not Available [facility] (Lab) [address] [place], [address], 09/02/2021 05:24:35 09/01/19 22 09/01/2021 VITAM IN B12 / FOLAT E PANEL folate, serum 10.1 NG/mL 6.0-20 .0 Not Available [facility] (Lab) [address] [place], [address], 09/02/2021 05:24:35 09/01/19 22 09/01/2021 VITAM IN D, 25-OH (TOTA L D2/D3 ) vitamin D, 25-hydroxy, total 33.6 NG/mL 30-80 NOTE: Defic iency : <20 ng/mL Insuf ficie ncy: 20-29 ng/mL Optim um Level : 30-80 ng/mL Possi ble Toxic ity: >80 ng/mL Most patie nts with toxic ity have level s >150 ng/mL . Not Available [facility] (Lab) [address] [facility], [place], [address], 09/02/2021 05:24:36 09/01/19 22 09/01/2021 HEMOG LOBIN A1C hemoglobin A1C 5.4 % 0-5.6 The Ameri can [employer] rebecca [employer] i[employer] n recom mends that a prima ry goal of thera py shoul d be a HBA1C of < 7% and that physi cians shoul d reeva luate the treat ment regim en in patie nts with HBA1C value s consi stent ly > 8%. <5.7% Elayne l 5.7 - 6.4% Incre ased risk for diabe rebecca >=6.5 % Diagn ostic of diabe rebecca <7.0% Goal of thera py >8.0% Actio n sugge sted Not Available [facility] (Lab) [address] [facility], [place], [address], 09/02/2021 05:24:36 02/10/20 22 MAMMO , scree colton, bilat eral No observ ation record ed. [facility] 2022 Leslie Patel [facility] [place], [place], [address], 02/18/2022 18:32:48 Result Notes None recorded. Problems Name Problem SNOMED Code Status Onset Date Resolution Date Notes Provider Name and Address Organization Details Recorded Time Abnormal cervical Papanico laou smear with human papillom avirus deoxyrib onucleic acid detected [id number] Completed 201308/31/2021 Cervical high risk human papilloma virus (HPV) DNA test positive; Recorded Elsewhere : No Locati on: [facility] [address] So urce: EHR Chron ic: N Practic e ID: [id number] Bill able Time: 02:56:04 PM Mali Willoughby [place], [place] - [facility] 10:50:32 Irregula r intermen strual bleeding [id number] Completed 201308/31/2021 Metrorrha zeenat;Recor ded Elsewhere : No Locati on: [facility] [address] So urce: EHR Chron ic: N Practic e ID: [id number] Bill able Time: 09:15:00 AM Mali Willoughby [facility] [address] 10:50:[address] Concept Completed 201708/31/2021 Encntr for general adult medical exam w/o abnormal findings; Recorded Elsewhere : No Locati on: [facility] [address] So urce: EHR Chron ic: N Practic e ID: [id number] Bill able Time: 08:30:00 AM Mali Willoughby [facility] 2 10:51:12 Chronic salpingo -oophori tis [id number] Completed 201308/31/2021 Hydrosalp inx;Recor ded Elsewhere : No Locati on: [facility] [address] So urce: EHR Chron ic: N Practic e ID: 0001 Bill able Time: 04:00:00 PM Mali Willoughby [facility] 2 10:50:35 Urgent desire to urinate [id number] Completed 201308/31/2021 URGENCY OF URINATION ;Recorded Elsewhere : No Locati on: [facility] [address] So urce: EHR Chron ic: N Practic e ID: 0001 Bill able Time: 03:45:00 PM Mali [facility] 2 10:51:17 Female genital organ symptoms [id number] Completed 201308/31/2021 Unspecifi ed symptom associate d with female genital organs;Re corded Elsewhere : No Locati on: [facility] [address] So urce: EHR Chron ic: N Practic e ID: [id number] Bill able Time: 09:30:00 AM Mali Willoughby [facility] 2 10:50:46 Amenorrh ea [id number] Completed 201308/31/2021 Amenorrhe a;Recorde d Elsewhere : No Locati on: [facility] [address] So urce: EHR Chron ic: N Practic e ID: 0001 Bill able Time: 03:45:00 PM Mali Willoughby [facility] 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 2 10:51:13 Screenin g for malignan t neoplasm of cervix Completed 201308/31/2021 Screening for malignant neoplasms of the cervix;Re corded Elsewhere : No Locati on: [facility] [address] So urce: EHR Chron ic: N Practic e ID: [id number] Bill able Time: 01:30:00 PM Mali Willoughby [facility] 2 10:51:08 Cyst of ovary [id number] Completed 201308/31/2021 Other and unspecifi ed ovarian cyst;Dhaval rded Elsewhere : No Locati on: [facility] [address] So urce: EHR Chron ic: N Practic e ID: 0001 Bill able Time: 10:00:00 AM Mali Willoughby [facility] 2 10:50:37 Pregnanc y test negative [id number] Completed 201308/31/2021 examinati on or test, negative result;Re corded Elsewhere : No Locati on: [facility] [address] So urce: EHR Chron ic: N Practic e ID: [id number] Bill able Time: 03:45:00 PM Mali Willoughby [facility] 2 10:50:58 Speciali zed medical examinat ion Completed 201308/31/2021 Gynecolog ical Examinati on;Record ed Elsewhere : No Locati on: [facility] [address] So urce: EHR Chron ic: N Practic e ID: [id number] Bill able Time: 01:30:00 PM Mali Willoughby [facility] 2 10:51:15 Screenin g for malignan t neoplasm of rectum Completed 201308/31/2021 Screening for malignant neoplasms of the rectum;Re corded Elsewhere : No Locati on: [facility] [address] So urce: EHR Chron ic: N Practic e ID: [id number] Bill able Time: 01:30:00 PM Mali Willoughby [facility] 2 10:51:10 Evaluati on finding Completed 201708/31/2021 Hematuria , unspecifi ed;Record ed Elsewhere : No Locati on: [facility] [address] So urce: EHR Chron ic: N Practic e ID: [id number] Bill able Time: 04:00:00 PM Mali Willoughby [facility] 2 10:50:39 Abdomina l pain [id number] Completed 201408/31/2021 Abdominal pain;Dhaval rded Elsewhere : No Locati on: [facility] [address] So urce: EHR Chron ic: N Practic e ID: [id number] Bill able Time: 03:30:00 PM Mali Willoughby [facility] 2 10:50:30 Pruritus of genital organs [id number] Completed 201308/31/2021 Vulvar itching;R ecorded Elsewhere : No Locati on: [facility] [address] So urce: EHR Chron ic: N Practic e ID: [id number] Bill able Time: 03:45:00 PM Mali Willoughby [facility] 2 10:51:05 Postoper ative follow-u p visit Completed 201308/31/2021 Follow-up examinati on, following unspecifi ed surgery;R ecorded Elsewhere : No Locati on: [facility] [address] So urce: EHR Chron ic: N Practic e ID: [id number] Bill able Time: 10:00:00 AM Mali Willoughby [facility] 2 10:50:55 Lichen sclerosu s et atrophic us Completed 201608/31/2021 Lichen sclerosus et atrophicu s;Recorde d Elsewhere : No Locati on: [facility] [address] So urce: EHR Chron ic: N Practic e ID: [id number] Bill able Time: 11:00:00 [facility] 10:50:54 Pre-surg jaymie evaluati on Completed 201308/31/2021 Pre-opera tive examinati on, unspecifi ed;Record ed Elsewhere : No Locati on: [facility] [address] So urce: EHR Chron ic: N Practic e ID: [id number] Bill able Time: 04:00:00 PM [facility] 10:50:57 Finding of trunk structur e [id number] Completed 201308/31/2021 Abdomen mass;Dhaval rded Elsewhere : No Locati on: [facility] [address] So urce: EHR Chron ic: N Practic e ID: [id number] Bill able Time: 03:00:00 PM [facility] 10:50:48 Radiolog y result abnormal [id number] Completed 201308/31/2021 Thickened Endometri al Stripe;Pr actice ID: [id number] Mali Willoughby [facility] 2 10:51:07 Leukocyt osis [id number] Completed 201308/31/2021 LEUKOCYTO SIS NOS;Pract ice ID: [id number] Mali Willoughby [facility] 2 10:50:52 Problem Notes None recorded. Procedures Surgical History Date Name Laterality Status Provider Name and Address Organization Details Recorded Time 9 Date of Last Pap Smear completed Mali Willoughby [facility] 09/01/2021 09:55:48 4 Colposcopy completed [facility] 08/31/2021 11:02:38 4 Colposcopy completed [facility] 08/31/2021 11:04:10 Imaging Results None recorded. Procedure Notes None recorded. Medical Equipment None Reported. Allergies No known drug allergies Medications Name Sig Start Date Stop Date Status Note LastModified by Organization Details LastModified Time Prometriu m 200 mg capsule take 1 capsule by oral route every day for 12 days before bedtime 07/05 completed Prescrib ed Elsewher e: No Locat ion: Tosin digna [facility] odify By: aneta Sawyer ncounter DateTime : 06/05/20 14 10:49:37 AM Not Available Not Available Not Available Levsin 0.125 mg tablet take 1 tablet by oral route every 4 hours as needed 01/10 completed Prescrib ed Elsewher e: Yes Loca tion: Alem sawyer [facility] odify By: mervin Sawyer ncounter DateTime : 03/10/20 17 11:00:00 AM Not Available Not Available Not Available sulfasala zine 500 mg tablet take 1 tablet by oral route 4 times every day after meals 04/03 completed Prescrib ed Elsewher e: No Locat ion: Alem sawyer [facility] odify By: aneta molinaunter DateTime : 01/22/20 14 01:30:00 PM Not Available Not Available Not Available cetirizin e 10 mg tablet TAKE 1 TABLET BY MOUTH EVERY DAY active Not Available Not Available No t Available Ferrex 150 mg iron capsule 03/10 completed Prescrib ed Elsewher e: No Locat ion: Gabidomluke sawyer [facility] odify By: aneta Sawyer ncounter DateTime : 01/22/20 14 01:30:00 PM Not Available Not Available Not Available folic acid 20 mg capsule 03/10 completed Prescrib ed Elsewher e: Yes Loca tion: [facility] odify By: aneta Sawyer ncounter DateTime : 01/22/20 14 01:30:00 PM Not Available Not Available Not Available diphenoxy late-atro pine 2.5 mg-0.025 mg tablet 2 TABS 4 TIMES DAILY NEEDED FOR DIARRHEA MUST BE SEEN FOR MORE REFILLS PLEASE CALL active Not Available Not Available No t Available acyclovir 400 mg tablet TAKE 1 TABLET BY MOUTH TWICE A DAY active Not Available Not Available No t Available doxycycli ne monohydra te 100 mg tablet take 1 tablet by oral route 2 times every day for 10 days 07/14 completed Prescrib ed Elsewher e: No [facility] By: freda mata DateTime : 07/05/20 14 10:15:00 AM Not Available Not Available Not Available amoxicill in 500 mg tablet take 1 tablet by oral route 3 times every day for 10 days 09/30 completed Prescrib ed Elsewher e: No Locat ion: [facility] odify By: donald mata DateTime : 09/21/19 18 04:00:00 PM Not Available Not Available Not Available clobetaso l 0.05 % topical gel APPLY BY TOPICAL ROUTE 2 TIMES EVERY WEEK A THIN LAYER TO THE AFFECTED AREA NEEDED active Not Available Not Available No t Available Metrogel Vaginal 0.75 % (37.5 mg/5 gram) insert 1 applicat orful by vaginal route every day at bedtime for 5 nights 03/10 completed Prescrib ed Elsewher e: No Locat ion: [facility] odify By: amkuhjerry Sawyer ncomarian DateTime : 06/10/20 14 12:47:49 PM Not Available Not Available Not Available estradiol 0.025 mg/24 hr weekly transderm al patch APPLY 1 PATCH TO THE SKIN ONCE WEEKLY (REMOVE OLD PATCH PRIOR TO APPLYING NEW PATCH) 2022 active Not Available Not Available Not Avai lable estradiol 1 mg tablet TAKE 1 TABLET BY MOUTH EVERY DAY active Not Available Not Available No t Available betametha sone valerate 0.1 % topical cream apply by topical route every day a thin layer to the affected area(s) 03/10 completed Prescrib ed Elsewher e: No Locat ion: [facility] odify By: aneta molinauntpatricio DateTime : 06/03/20 14 03:45:00 PM Not Available Not Available Not Available triamcino lone acetonide 0.1 % topical ointment APPLY A THIN LAYER TO THE VULVA BY TOPICAL ROUTE 2-3 TIMES PER WEEK 09/01 completed Not Available Not Available Not Available Prednison e Intensol 5 mg/mL oral concentra te take 1 millilit er by oral route 4 times every day 03/10 completed Prescrib ed Elsewher e: Yes Loca tion: Alem sawyer [facility] odify By: aneta molinaunter DateTime : 01/22/20 14 01:30:00 PM Not Available Not Available Not Available Provera 10 mg tablet take 1 tablet by oral route every day 07/05 completed Prescrib ed Elsewher e: No Locat ion: [facility] odify By: aneta heredia DateTime : 06/12/20 14 03:12:11 PM Not Available Not Available Not Available estradiol 0.5 mg tablet take 1 tablet by oral route every day 10/12 completed Prescrib ed Elsewher e: Yes Loca tion: [facility] odify By: sybil heredia DateTime : 03/10/20 17 11:00:00 AM Not Available Not Available Not Available Vitamin D2 1,250 mcg (50,000 unit) capsule take 1 capsule by oral route every week 03/10 completed Prescrib ed Elsewher e: Yes Loca tion: [facility] odify By: aneta molinauntpatricio DateTime : 07/05/20 14 10:15:00 AM Not Available Not Available Not Available colestipo l 1 gram tablet take 2 tablet by oral route 2 times every day swallowi ng whole with any liquid. Do not crush, chew and/or divide. 09/01 completed Not Available Not Available Not Available Rocephin 500 mg solution for injection inject (500MG) by intramus cular route every 12 hours 07/31 completed Prescrib ed Elsewher e: No Locat ion: Alem sawyer [facility] odify By: aneta heredia DateTime : 07/05/20 14 10:15:00 AM Not Available Not Available Not Available Bactrim DS 800 mg-160 mg tablet take 1 tablet by oral route every 12 hours 07/15 completed Prescrib ed Elsewher e: No Locat ion: Alem sawyer [facility] odify By: aneta molinauntpatricio DateTime : 06/03/20 14 03:45:00 PM Not Available Not Available Not Available B Complex tablet,ex tended release 08/31 completed Prescrib ed Elsewher e: Yes Loca tion: Alem sawyer [facility] odify By: aneta molinauntpatricio DateTime : 03/10/20 17 11:00:00 AM Not Available Not Available Not Available Premarin 0.45 mg tablet take 1 tablet by oral route every day 08/31 completed Prescrib ed Elsewher e: Yes Loca tion: Alem sawyer [facility] odify By: aneta molinauntpatricio DateTime : 03/10/20 17 11:00:00 AM Not Available Not Available Not Available doxycycli ne hyclate 75 mg tablet,de layed release take 1 tablet by oral route every day 07/31 completed Prescrib ed Elsewher e: Yes Loca tion: Alem sawyer [facility] odify By: aneta heredia DateTime : 07/15/20 14 09:15:00 AM Not Available Not Available Not Available Humira Pen 40 mg/0.8 mL subcutane ous kit 03/10 completed Prescrib ed Elsewher e: No Locat ion: Alem sawyer [facility] odify By: aneta molinauntpatricio DateTime : 01/22/20 14 01:30:00 PM Not Available Not Available Not Available Vitamin D3 50 mcg (2,000 unit) tablet 2016 active Prescrib ed Elsewher e: Yes Loca tion: Alem sawyer [facility] odify By: aneta molinauntpatricio DateTime : 03/10/20 17 11:00:00 AM Not Available Not Available Not Available Bioflex 500 mg-50 mg-25 mg-40 mg tablet 2016 active Prescrib ed Elsewher e: Yes Loca tion: Alem sawyer [facility] odify By: aneta molinaunter DateTime : 03/10/20 11:00:00 AM Not Available Not Available Not Available Calmosept ine 0.44 %-20.6 % topical ointment 09/01 completed Prescrib ed Elsewher e: Yes Loca tion: Alem sawyer [facility] odify By: aneta Sawyer ncounter DateTime : 03/10/20 11:00:00 AM Not Available Not Available Not Available Entyvio 300 mg intraveno us solution infuse by intraven ous route every 8 weeks over 2016 active Prescrib ed Elsewher e: Yes [facility] By: aneta molinauntpatricio DateTime : 03/10/20 11:00:00 AM Not Available Not Available Not Available Fish Oil 720 mg-1,200 mg capsule 01/10 completed Prescrib ed Elsewher e: Yes Loca tion: [facility] odify By: mervin Sawyer ncounter DateTime : 03/10/20 11:00:00 AM Not Available Not Available Not Available Vitals Date Recorded Body height Body mass index (BMI) Body weight Systolic blood pressure Diastolic blood pressure Provider Name and Address Organization Details Last Updated DateTime 09/01/2021 167.64 cm 21.5 kg/m2 83286.79 g 124 mm[Hg] 76 mm[Hg] Mali Willoughby [facility] 09:54:49 Social History Question Answer Notes LastModified by Organizat ion Details LastModified Time Tobacco Smoking Status Never Smoker Mali Willoughby [facility] 08/31/2021 10:56:10 Are You Blind Or Do You Have Difficulty Seeing? No Information not available 08/31/2021 What Is Your Level Of Caffeine Consumption? Occasional Information not available 08/31/2021 Are You Deaf Or Do You Have Serious Difficulty Hearing? No Information not available 08/31/2021 What Type Of Diet Are You Following? REGULAR Information not available 08/31/2021 Do You Use Your Seat Belt Or Car Seat Routinely? Yes Information not available 08/31/2021 Do You Have Smoke And Carbon Monoxide Detectors In Your Home? Yes Information not available 08/31/2021 Do You Use Sunscreen Routinely? Yes Information not available 08/31/2021 Do You Have Difficulty Walking Or Climbing Stairs? No Information not available 08/31/2021 Sex: Unknown Functional Status Question Answer Note LastModified by Organizat ion Details LastModified Time Do you use any illicit or recreational drugs? No Information not available 08/31/2021 What is your level of alcohol consumption? Occasional Information not available 08/31/2021 Are you able to walk? YESWOREST Information not available 08/31/2021 Are you able to care for yourself? Yes Information n ot available 08/31/2021 Do you have difficulty dressing or bathing? No Information not available 08/31/2021 What is your exercise level? Occasional Information not available 08/31/2021 Mental Status Question Answer Note LastModified by Organization D etails LastModified Time Do you feel stressed (tense, restless, nervous, or anxious, or unable to sleep at night)? [id number] Information not available 08/31/2021 Family History Relationship Description Onset Age of this Age Resolved Age Notes LastModified by Organization Details LastModified Time Maternal Grandfather Malignant neoplasm of skin Not available 2021 10:52:00 Maternal Grandmother Malignant tumor of breast Not available 2021 10:52:10 Maternal Grandmother Malignant neoplasm of brain Not available 2021 10:52:23 Maternal Uncle Malignant neoplasm of lung Not available 2021 10:52:59 Maternal Uncle Malignant tumor of colon Not available 2021 10:53:10 Maternal Uncle Carcinoma of prostate Not available 2021 10:53:44 Paternal Grandmother Hypertensive disorder Not available 2021 10:54:09 Mother Osteoporosis Not availab le 08/31/2021 10:54:29 Medical History Condition Response Other Y Anemia Y Acid Reflux (GERD) Y History of abnormal pap Y Polycystic ovary syndrome Y Dermatologic Disorders Y GI Problems Y Gynecological History Statement/Question Response STIs/STDs Y Colposcopy 02/11/2014 Date of Last Pap Smear 01/10/2019 Current Control Method Hysterectom y LMP Unknown Sexually Active? Y Obstetrics History GPAL:G 1 P 0 0 1 0 Type Value Induced 1 Living 0 Total 1 Past Encounters Encounter ID Performer Location Encounter Start Date Encounter Closed Date Diagnosis/Indication Diagnosis SNOMED-CT Code Diagnosis ICD10 Code Diagnosis Note [id number] Lucille Aj , [facility] [address] [address] 09/01/2021 09:48:06 09/01/2021 10:56:55 Gynecologic examination 96382845 Z01.419 Suggested Calcium with Vitamin D 1200-1500m g daily. Patient advised to get an annual flu shot in the fall and she could obtain at [facility] or [facility]. Also to obtain TDap vaccinatio n if you have not had one in the last 10 years. Recommend yearly mammograms . Encouraged monthly self breast exams. Encourage safe sexual practices, to use condoms and limit partners if not already in a monogamous relationsh ip. Engage in daily exercise of low impact aerobic exercise 45-60 minutes 4-5 times weekly. Avoid tobacco and illicit drugs as well as using moderation with alcohol intake less than 1-2 8 oz beverages daily. This lifestyle behavior pattern will lead to less health conditions and longer life span. If BMI greater than 25 weight watchers or dietary consult advised. All questions have been answered. Patient appears to understand informatio n, but if you have any questions please call or respond to this email. USPSTF recommends against screening for cervical cancer in women older than 65yo or who've had full hysterecto my for non-cancer indication s, who have had adequate prior screening & are not otherwise at high risk for cervical cancer. Declined std screen-Not currently SA Genetic screen discussed Colon screening- Hx of UC with large intestine removal (managed by GI) Dexa- ordered Mammo ordered Adult heal th examination 893196330 Z00.00 Genital li saldaña sclerosus [id number] L90.0 Doing very well with her current regimeRF's sent Menopausal symptom 99174 002 N95.1 Trial of Patch vs PO meds which will likely be more beneficial based on her Hx of UC with large intestines removal. Will send Rx & she will f/u in next 8wks for evaluation /managemen t.Consider addition of SSRI if needed for mood regulation as she is dealing with a lot of social stressors as well right now. Health Concerns Section Related Observation LastModified by Organization Detai ls LastModified Time None Recorded Concern Status LastModified by Organization Details LastModified Time None Recorded Advance Directives Directive None Recorded Payers None recorded. Notes Date Note Type Note Provider Name and Address Organization Details Recorded Time 09/01/2021 text/html Annual Scaffolder Post-MenopausalRe ported bypatient.[place] henrry Symptoms:no menopausal symptoms; normal vaginal lubrication Vaginal Bleeding:history of menopause having occurred; no history of post menopausal bleeding Urinary Symptoms:no hematuria; no incontinence; no nocturia; no urinary frequency Vulva:no genital lesion; no vulvar atrophy Vagina:normal vaginal discharge; no vaginal atrophy Breast:no breast lump; no nipple discharge; no breast pain Sexual Complaints:no sexual complaints Psychological Symptoms:no depression; no anxiety Preventive Measures:encourag e regular mammograms starting age 40; encourage self breast examination; encourage regular exercise; encourage no tobacco use; needs to schedule mammogram; history of recent colonoscopy; needs to schedule bone density Lucille Aj, [facility]- [address], [place], [address], [facility] 09/01/2021 10:45:17 OBGyn Episode Ob Episode Information Episode Created Date Number of Fetuses Patient Bloodtype Patient rh Status Prepregnancy Weight lbs Domestic Partner Domestic Partner Phone Father Name Copier Operator Status 08/31/19 22 1 CLOSED Fetus Data First Name Last Name Admitted to NICU Weight (g) Sex Living Outcome Pediatric Complications Fetus ID Race Codes Race Delivery Type , Induced [id number] Jason Calculation Initial Jason Date Initial Exam Date Initial Exam Provider Initial Ultrasound Date Last Menstrual Period Date Ultra Sound Weeks Gestation 0 Eighteen To Twenty Week Jason Update Ultra Sound Date Fundal Height At Umbil Quickening Date Ultra Sound Latest Weeks Gestation Final Jason Confirmed By Final Jason Confirmed Date Final Jason Date Ultra Sound Latest Days Gestation 0 0 Menstrual History Last Menstrual Date Menses Monthly On Bcp Conception Prior Menses Frequency Hcg Plus Date Menarche Onset Age Delivery Information Delivery Date Delivery Type Labor Anesthesia Weeks Gestation Incision Type Labor Labor Length Hrs Delivered By Post Complications Tubal Sterilization Discharge Date Comments 1 Discharge Information Feeding Method Contraceptive Method Maternal HG B and HCT Levels
--- OUTSIDE RECORDS SUMMARY | 2024-12-31 15:41 | XMS_ITS | Clinical Summary ---
Author Organization [facility] Address [address] [place] [address] Phone Care Team Providers Care Case Management Assistant Name Role Phone Nomfc, External Provider Primary Care Provider U navailable Allergies Active Allergy Reactions Criticality Noted Date Comments Unclassified Drug Hives,Rash High 11/02/2016 Medications diphenoxylate-at ropine 2.5-0.025 mg tablet TAKE ONE TABLET BY MOUTH 4 TIMES A DAY NEEDED FOR DIARRHEA 2 7 Active estradiol (ESTRACE) 0.5 mg tablet TAKE 1/2 TABLET BY MOUTH ONCE DAILY WITH 1 MG TAB FOR TOTAL OF 1.25 MG 1 7 Active estradiol (ESTRACE) 1 mg tablet TAKE 1 TABLET DAILY ALONG WITH 0.25 MG TABLET (TOTAL DAILY DOSE 1.25MG). 1 7 Active CANASA 1,000 mg Suppository INSERT 1 SUPPOSITORY RECTALLY AT BEDTIME. 11 7 Active colestipol (COLESTID) 1 gram tablet TAKE ONE TABLET BY MOUTH UP TO THREE TIMES A DAY 3 7 Active valACYclovir (VALTREX) 1 gram tablet TAKE 1 TABLET(S) EVERY 12 HOURS BY ORAL ROUTE FOR 5 DAYS. 1 7 Active hyoscyamine 0.125 mg Tablet, Sublingual Place 0.125 mg under tongue every 4 hours as needed for Spasm. Active ERGOCALCIFEROL, VITAMIN D2, (VITAMIN D ORAL) Take by mouth. Active CALCIUM CARB/VIT D2/MINERALS (CALTRATE PLUS ORAL) Take by mouth. Activ e RUTIN/HESP/BIOFL AV/C/HERB#196 (BIOFLEX ORAL) Take by mouth. Active OMEGA-3 FATTY ACIDS/FISH OIL (OMEGA 3 FISH OIL ORAL) Take by mouth. Activ e MENTHOL/ZINC OXIDE (CALMOSEPTINE TOPICAL) Apply to affected area. Active Active Problems No known active problems Social History Tobacco Use Types Packs/Day Years Used Date Smoking Tobacco: Never Comments Unknown Sex and Gender Information Value Date Recorded Sex Assigned at Not on file Legal Sex Female 11:14 AM CDT Gender Identity Not on file Sexual Orientation Not on file Last Filed Vital Signs Vital Sign Reading Time Taken Comments Blood Pressure 104/54 11/02/2016 12:31 PM CDT Pulse 64 11/02/2016 12:31 PM CDT Temperature - - Respiratory Rate - - Oxygen Saturation - - Inhaled Oxygen Concentration - - Weight 56.7 kg (125 lb) 11/02/2016 12:31 PM CDT Height 167.6 cm (5' 6) 11/02/2016 12:31 PM CDT Body Mass Index 20.18 11/02/2016 12:31 PM CDT Plan of Treatment Health Maintenance Due Date Last Done Comments DTAP/TDAP/TD VACCINES (1 - Tdap) 1992 HEPATITIS B VACCINES (1 of 3 - 19+ 3-dose series) 10/1992 HPV/Cotest (21-29) 1994 CERVICAL CANCER SCREENING 2003 HPV/Cotest (30-65) 2003 PAP SMEAR 2003 BREAST CANCER SCREENING 2013 COLORECTAL SCREENING 2018 Colorectal Cancer Screening 2018 FIT-DNA Q 3 years 2018 FIT/FOBT Q 1 year 2018 Flex Sig/CT Colonography Q 5 years 2018 ZOSTER VACCINE (1 of 2) 2023 INFLUENZA VACCINE (#1) 2024 Insurance [employer] [place] Care Teams Case Management Assistant Relationship Specialty Start Date End Date Nom, External Provider PCP - General 10/20/16
--- OUTSIDE RECORDS SUMMARY | 2024-12-31 15:41 | XMS_ITS | CONTINUITY OF CARE DOCUMENT ---
Author Name jesús, jenniferluis antonio Address Unknown Organization [facility] Address [address] [place] [address] Phone [phone] Care Team Providers Care Security Screener Name Role Phone Lucila Rosas MD Unavailable BANAL SAFE DEPOSIT CLERK-C, EMIGDIO L Unavailable BANAL SAFE DEPOSIT CLERK-C, EMIGDIO L Unavailable [phone] PROBLEMS Condition Status Date Provider Notes Ulcerative colitis active Lucila Rosas MD Chest pain-calc score 0, nml LV func on echo 02/09 active Lucila Rosas MD Post menopausal active Lucila Rosas MD FAMILY HISTORY OF HEART DISEASE active Nuno Rosas MD Dizziness- <50% b/l carotids active Lucila Rosas MD Palpitations- no significant arrhythmias 02/09 active 2 Lucila Rosas MD ENCOUNTERS Date Type Provider Location Encounter Diag nosis - In-person encounter Office Visit Lucila Rosas MD [facility] Chest pain-calc score 0, nml LV func on echo 02/09Dizziness- <50% b/l carotidsPalpitations- no significant arrhythmias 02/09 - In-person encounter Office Visit Lucila Rosas MD [facility] Ulcerative colitisChest pain-calc score 0, nml LV func on echo 02/09Post menopausalFAMILY HISTORY OF HEART DISEASEDizziness- <50% b/l carotidsPalpitations- no significant arrhythmias 7/19 VITAL SIGNS Date Observation Value Provider Body Mass Index (Ratio) 21.14 kg/m2 Nuno Rosas MD blood pressure, diastolic 70 mm[Hg] Mingo jones Krunal blood pressure, systolic 108 mm[Hg] Mary berrios Krunal oxygen saturation, oximetry 99 % Katie Krunal pulse rate 68 /min Katie Morgan Hoff weight E&M 131 [lb_av] Katie SternRian Hoff height E&M 66 [in_i] Katie Morgan Hoff blood pressure, diastolic 70 mm[Hg] Pa leta Rossi blood pressure, systolic 102 mm[Hg] Ron ruelas Cecilioneel Body Mass Index (Ratio) 21.14 kg/m2 Nuno Rosas MD blood pressure, diastolic 70 mm[Hg] Ki claudine Mcknight blood pressure, systolic 110 mm[Hg] Kil rea Mcknight oxygen saturation, oximetry 98 % Glade Mcknight respiratory rate E&M 16 /min Andrew Mcknight pulse rate 82 /min Andrew Mcknight weight E&M 131 [lb_av] Glade Mcknight height E&M 66 [in_i] Andrew Mcknight blood pressure, resting No Kill een Mcknight ALLERGIES Allergy Name Onset Date Reaction Criticality Status SURGICAL GLUE Low Criticality active HISTORY OF MEDICATION USE Medication Status Instructions Dates Provider Indications Com ments GUAIFENESIN-CODE INE 100-10 MG/5ML ORAL SOLUTION completed - Katie MoraLatoya sawyer #118, 5 days supply, Prescribed by EMIGDIO PISANO, Filled 09/15/2017 PREMARIN 0.625 MG/GM VAGINAL CREAM active APPLY A PEA-SIZED AMOUNT TO VAGINAL OPENING 3 TO 4 TIMES PER WEEK. Andrew Mcknight #30, 30 days supply, Prescribed by SIMONE STRANGE, Filled 01/19/2018 CROMOLYN SODIUM 4 % OPHTHALMIC SOLUTION completed INSTILL 1 DROP INTO AFFECTED EYE 4 TIMES A DAY - Katie sawyer #10, 30 days supply, Prescribed by EMIGDIO PISANO, Filled 06/26/2018 OMEPRAZOLE 40 MG ORAL CAPSULE DELAYED RELEASE active TAKE 1 CAPSULE BY MOUTH EVERY DAY Andrew Mcknight #30, 30 days supply, Prescribed by FRANCISCA BRYSON, Filled 07/12/2018 DIPHENOXYLATE-AT ROPINE 2.5-0.025 MG ORAL TABLET active Andrew Mcknight #240, 30 days supply, Prescribed by CATALINA FOSTER, Filled 10/03/2018 COLESTIPOL HCL 1 GM ORAL TABLET active TAKE 3 TABLETS BY MOUTH 4 TIMES DAILY Glade Mcknight #360, 30 days supply, Prescribed by GOPAL OCHOA, Filled 10/03/2018 FLUTICASONE PROPIONATE 50 MCG/ACT NASAL SUSPENSION active INHALE 2 SPRAYS INTO EACH NOSTRIL EVERY DAY Glade Mcknight #16, 30 days supply, Prescribed by ECHO ARDON, Filled 11/26/2018 ALLERGY 10 MG ORAL TABLET active TAKE 1 TABLET BY MOUTH EVERY DAY Glade Mcknight #30, 30 days supply, Prescribed by NOA POP, Filled 12/04/2018 ESTRADIOL 1 MG ORAL TABLET active TAKE 1 TABLET BY MOUTH EVERY DAY Andrew Mcknight #30, 30 days supply, Prescribed by VERONICA MELGAR, Filled 01/10/2019 VALACYCLOVIR HCL 1 GM ORAL TABLET active TAKE 1 TABLET BY MOUTH EVERY 12 HOURS FOR 5 DAYS Andrew Mcknight #10, 5 days supply, Prescribed by EMIGDIO PISANO, Filled 01/22/2019 SOCIAL HISTORY Date Observation Value Provider social history E&M S moking History: Matilda walsh has never smoked. Lucila Rosas MD smoking status Never smoker Katie Ballesteros social history reviewed E&M revi ewed - no changes required Katie Hector smoking status Never smoker Aileen Rossi social history reviewed E&M revi ewed - no changes required Lucila Rosas MD social history E&M S moking History: P jillian has never smoked. Lucila Rosas MD number of grandchildren Lucila Rosas MD Arthur Mcknight smoking status Never smoker Andrew Mickichago man FUNCTIONAL STATUS Date Observation Value Provider periodic limb movement index absent (0) Aileen Rossi INSURANCE PROVIDERS Payer name Policy type / Coverage type [place] red democrat ID [employer] (2) Medicaid [id number] ADVANCE DIRECTIVES Name Date DISCUSSED - NO DECISION MADE TREATMENT PLAN Date Name Performer Cardiology Lucila Rosas MD Cardiology Lucila Rosas MD Cardiology Lucila Rosas MD Cardiology Lucila Rosas MD Cardiology Lucila Rosas MD Cardiology Lucila Rosas MD Cardiology Lucila Rosas MD Cardiology Lucila Rosas MD Cardiology Lucila Rosas MD Date Name CT, Coronary Calcium Score X-Ray, Cervical Spin e Holter Monitor 48 hr Stress Routine Complete Echo HISTORY OF PROCEDURES Procedure Date Procedure Name Provider Procedure Notes S tatus Holter, 24 or 48 Nasima stewart alex Stress EKG Bruce Streeter MD comp leted CT- Coronary CA score Lucila Rosas MD completed EKG Lucila Rosas MD completed
--- OUTSIDE RECORDS SUMMARY | 2024-12-31 15:41 | XMS_ITS | Referral Summary ---
Author Organization [facility] Address [address] [place] [address] Care Team Providers Care Human Resources Executive Assistant Name Role Phone Pricilla Hernandez MD Unavailable Monalisa Mendez NP Primary Care Provider Encounters Date Type Department Care Team Description 12/24/2024 Plan of Care Documentation [facility] [place] [address] 12/24/2024 Results Follow-Up [facility] Gastroenterology [address] [facility] 12th [place] [address] [place] [address] Jose Rajput MD Surgical pathology 12/24/2024 3:15 PM CDT Therapy [facility] [place] [address] Gema Hinson, PT Chronic bilateral low back pain with bilateral sciatica (Primary Dx); Sciatica, right side 12/21/2024 12:00 PM CDT - 12/21/2024 1:00 PM CDT Surgery [facility] Endoscopy [address] [place] [address] Jose Rajput MD POUCHOSCOPY BIOPSY 12/21/2024 11:10 AM CDT Anesthesia Event [facility] Endoscopy [address] [address] [place], [place] [address] Arnulfo Ojeda MD 12/21/2024 10:39 AM CDT - 12/21/2024 12:24 PM CDT Hospital Encounter [facility] Endoscopy [address] [place] [address] Jose Rajput MD Rectal cuffitis; Esophageal dysphagia; Chronic cough Discharge Disposition: Discharge to home or self care 12/12/2024 1:00 PM CDT Infusion [facility] [address] [facility] [address] [place] [address] High risk medications (not anticoagulants) long-term use (Primary Dx); Chronic ulcerative proctitis with complication (HCC) 11/12/2024 4:34 PM CDT - 11/12/2024 11:59 PM CDT Hospital Encounter [address] [address] Sciatica, left side Discharge Disposition: Discharge to home or self care 10/31/2024 1:00 PM CDT Infusion [address] [place] [address] Chronic ulcerative proctitis with complication (HCC) (Primary Dx) 10/30/2024 8:30 AM CDT Office Visit [facility] Gastroenterology [address] [place] [address] Medical Office Building [address] [place] [address] Keturah Helm, RAMÍREZ Rectal cuffitis (Primary Dx); Esophageal dysphagia; Chronic cough; High risk medications (not anticoagulants) long-term use 10/24/2024 7:10 AM CDT Lab [address] [address] Chronic ulcerative proctitis with complication (HCC); High risk medications (not anticoagulants) long-term use; Screening for viral disease 10/09/2024 Orders Only [address] [place] [address] Megha Cline RN from Last 3 Months Allergies Active Allergy Reactions Criticality Noted Date Comments Unclassified Drug Hives,Rash High 11/02/2016 Surgical Glue/Dermabond Medications vit I-aynoshv-kjam-r utin-hb196 955-51-50-40 mg tablet daily. Active calcium carbonate-vitami n D3 1,500 mg (600 mg elemental)-800 unit tablet,chewable 2 times daily. 013 Active colestipol (COLESTID) 1 gram tablet TAKE ONE TABLET BY MOUTH UP TO THREE TIMES A DAY Active PREMARIN vaginal cream 5 018 Active hyoscyamine (LEVSIN) 0.[address] 1 tablet (0.125 mg total) under the tongue every 4 hours as needed Active valACYclovir (VALTREX) 1 gram tablet TAKE 1 TABLET(S) EVERY 12 HOURS BY ORAL ROUTE FOR 5 DAYS. Active cholecalciferol (VITAMIN D-3) 2000 unit capsule PT STATES SHE TAKES 4574-0412 UNITS DAILY Active olopatadine (PATADAY) 0.2 % [...] mg Dosepack follow package directions 21 tablet Active Additional Information Patient not taking.Reported on 11/15/2024 traMADol (ULTRAM) 50 mg tablet Take 1 tablet (50 mg total) by mouth every 6 (six) hours 20 tablet 09/23/2 019 Active cephalexin (KEFLEX) 500 mg capsule [...] catheter every 6 (six) weeks Infused at: [facility] 5 mL 2 024 Active diphenoxylate-at ropine [...] 07/28/2018 Assessment & Plan (09/26/2018 1:17 PM SPOTTER): Sinus Rinse followed by Flonase 2 sprays into each nostril while looking down over the sink, do not sniff in or blow nose after use. Follow up in 2 months Consider Zyrtec daily (cetirizine) 10 mg daily Assessment & Plan (07/28/2018 1:58 PM SPOTTER): CT Sinus per [facility] Protocol Try to continue Flonase Start cetirizine 10 mg daily Pataday one drop into each eye before using contacts then change to milder contact solution Warm compresses to neck or heating pad that has been turned off Chronic sphenoidal sinusitis 06/23/2018 Assessment & Plan (09/26/2018 1:16 PM SPOTTER): Sinus Rinse followed by Flonase 2 sprays into each nostril while looking down over the sink, do not sniff in or blow nose after use. Follow up in 2 months Consider Zyrtec daily (cetirizine) 10 mg daily Assessment & Plan (09/15/2018 1:50 PM SPOTTER): Finish Antibiotics Continue nasal saline 4 times daily and as needed Increase hydration Sinus Rinse at least once if not twice daily. Follow up in one week Assessment & Plan (07/28/2018 1:58 PM SPOTTER): CT Sinus per [facility] Protocol Try to continue Flonase Start cetirizine 10 mg daily Pataday one drop into each eye before using contacts then change to milder contact solution Warm compresses to neck or heating pad that has been turned off Assessment & Plan (06/23/2018 7:14 PM SPOTTER): Flonase 2 sprays into each nostril while [...] none. 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 Prior treatments: humira, pentasa, [...] in person follow up in 6 months Immunizations Immunization Administration Dates Next Due Influenza, Quadrivalent, Hig h Dose, Preservative Free, Intrr 09/08/2022 Influenza, Trivalent, Preser vative Free, Intramuscular 06/09/2017,06/24/2015,05/07/2014,06/28 Pneumococcal Conjugate PCV 13 12/02/2016 Pneumococcal Polysaccharide PPV23 06/28/2013 Social History Tobacco Use Types Packs/Day Years [...] on file Legal Sex Female 12:19 AM SPOTTER Gender Identity Not on file Sexual Orientation [...] 12/21/2024 10:47 AM CDT Plan of Treatment Not on file Procedures Procedure Name Priority Date/Time Associated Diagnosis [...] Female Attending MD: Jose Rajput M.D. Room: [facility] ENDOSCOPY ROOM 05 Note Status: Finalized Procedure: [...] and oxygen saturations were monitored continuously. The [id number] was introduced through theileoanal anastomosis via the [...] business hours - Please call theNurse Coordinator: [phone]. After hours, evening, nights, weekends and holidays- Please call the hospital electric mule operator at and ask for the GI fellow oracle adf consultant. Attending Participation: I personally performed the entire procedure. Electronically signed by Jose Rajput MD Jose Rajput M.D. 12/21/2024 11:36:03 AM Number of Addenda: 0 Note Initiated On: 12/21/2024 11:24 AM Jose Rajput MD ENDOSCOPY PROCEDURES Final Result * Surgical pathology (12/21/2024 11:20 AM CDT) Tissue (EG Junction, Biopsy) 12/21/2024 11:20 AM CDT Tissue specimen (specimen) (Colon, Biopsy) 12/21/2024 11:28 AM CDT Tissue specimen (specimen) (Polyp(s), colon/colorectal, esophageal, gastric) 12/21/2024 11:31 AM CDT Narrative PATHOLOGY [facility] - 12/24/2024 3:04 PM CDT EPIC results best viewed via link to PDF [facility] [place] [address] Note to Patients: This report may contain [...] details. SURGICAL PATHOLOGY REPORT FINAL Patient Name: JS DIAMOND Gender: F : 1975 (Age: 49) Address: [facility] [place] [address] [facility] #: [id number] Taken:12/21/2024 Received:12/21/2024 Reported: 12/24/2024 Patient Type: [facility] EP SAME Client [facility] Service: Gastro Location: Physician(s): Jo Ann Wright [...] abnormality - Negative for dysplasia or granulomas [facility]/12/24/2024 15:04 By this signature, I attest that [...] Stained with eosin). Labeled C1. Jar [facility]. [facility]/12/21/2024 13:16 PA(s): SHUBHAM Kilpatrick By this signature, I attest that the above diagnosis is based upon my personal examination of the slides(and/or other material). Addenda/Procedures Microscopic slide review and interpretation for this case was performed at [facility], Department of Surgical Pathology, [address] [facility] [place], [place] [id number], [place] [address] CLIA # [id number] The performance characteristics of some immunohistochemical stains, fluorescence in-situ hybridization tests and immunophenotyping by flow cytometry cited in this report (if any) were determined by the Surgical Pathology and Flow Cytometry Departments at [facility] as part of an ongoing water quality technician program and in compliance with federally mandated [...] Surgical Pathology and Flow Cytometry Departments of [facility]. It has not been cleared or approved by the U. S. Food and Drug Administration. IMAGES AND SCANNED DOCUMENTS, IF INCLUDED, ONLY VIEWABLE IN PDF VERSION OF REPORT Jose Rajput MD LAB PATHOLOGY ORDERABLES Fi nal Result [facility] [phone] * EGD (12/21/2024 11:06 AM CDT) Anatomical Region Laterality Modality Other Narrative Procedure Note Jose Rajput MD - 12/21/2024 11:06 AM CDT ENDOSCOPY LAB Patient Name: Js Diamond Procedure Date: 12/21/2024 11:06 AM Date of : 1975 Admit Type: Outpatient Age: 49 Gender: Female Attending MD: Jose Rajput M.D. Room: [facility] ENDOSCOPY RO[facility] 05 Note Status: Finalized Procedure: [...] and oxygen saturations were monitored continuously. The [id number] was introduced through the mouth,and advanced to [...] 0 Note Initiated On: 12/21/2024 11:06 AM Jose Rajput MD ENDOSCOPY PROCEDURES Final Result [...] was last reviewed 2021. Testing performed by: [place], [address] Blood 12/12/2024 1:05 PM CDT 12/12/2024 1:30 PM CDT Jose Rajput MD LAB BLOOD ORDERABLES Final Result [facility] ([facility]) [address] [facility] [place] [address] * Differential, auto (12/12/2024 1:05 PM CDT) Neutrophil abs 3.88 1.50 - 6.50 K/cumm Comment:Testing performed by : [place], [address] Imm gran abs 0.01 0.00 - 0.10 K/cumm [facility] ([place]) Comment:Testing performed by : [place], [address] Lymphocyte abs 1.90 0.80 - 3.30 K/cumm [facility] ([place]) Comment:Testing performed by : [place], [address] Monocyte abs 0.55 0.20 - 0.80 K/cumm [facility] ([place]) Comment:Testing performed by : [facility], [place], [address] Eosinophil abs 0.11 0.00 - 0.50 K/cumm [facility] ([place]) Comment:Testing performed by : [place], [address] Basophil abs 0.07 0.00 - 0.10 K/cumm [facility] ([place]) Comment:Testing performed by : [place], [address] Neutrophil pct 59.5 % [facility] ([place]) Comment: Interpretive Data Percent cell count reference ranges are not reported, since discordance with absolute values may lead to misinterpretation of CBC data. Current Interpretive Data was last revised on 2017. Testing performed by: [place], [address] Imm gran pct 0.2 % [facility] ([place]) Comment: Interpretive Data Percent cell count reference ranges are not reported, since discordance with absolute values may lead to misinterpretation of CBC data. Current Interpretive Data was last revised on 2017. Testing performed by: [place], [address] Lymphocyte pct 29.1 % [facility] ([place]) Comment: Interpretive Data Percent cell count reference ranges are not reported, since discordance with absolute values may lead to misinterpretation of CBC data. Current Interpretive Data was last revised on 2017. Testing performed by: [place], [address] Monocyte pct 8.4 % [facility] ([place]) Comment: Interpretive Data Percent cell count reference ranges are not reported, since discordance with absolute values may lead to misinterpretation of CBC data. Current Interpretive Data was last revised on 2017. Testing performed by: [place], [address] Eosinophil pct 1.7 % [facility] ([place]) Comment: Interpretive Data Percent cell count reference ranges are not reported, since discordance with absolute values may lead to misinterpretation of CBC data. Current Interpretive Data was last revised on 2017. Testing performed by: [place], [address] Basophil pct 1.1 % [facility] ([place]) Comment: Interpretive Data Percent cell count reference ranges are not reported, since discordance with absolute values may lead to misinterpretation of CBC data. Current Interpretive Data was last revised on 2017. Testing performed by: [place], [address] Blood 12/12/2024 1:05 PM CDT 12/12/2024 1:54 PM CDT us Jose Rajput MD LAB BLOOD ORDERABLES Final Result [facility] ([place]) [address] [facility] [place] [address] * CBC with auto differential (12/12/2024 1:05 PM CDT) WBC 6.52 3.80 - 9.90 K/cumm Comment:Testing performed by : [place], [place], Hgb 14.0 11.9 - 15.5 g/dL [facility] ([place]) Comment:Testing performed by : [facility], [place], [place], Hct 41.3 35.6 - 45.5 % [facility] ([place]) Comment:Testing performed by : [place], [place], Plt 338 150 - 400 K/cumm [facility] ([place]) Comment:Testing performed by : [place], MPV 10.1 9.1 - 12.3 fL [facility] ([place]) Comment:Testing performed by : [place], RBC 4.57 3.90 - 5.20 M/cumm [facility] ([place]) Comment:Testing performed by : [place], MCV 90.4 81.3 - 96.4 fL [facility] ([place]) Comment:Testing performed by : [place], MCH 30.6 27.1 - 33.3 pg [facility] ([place]) Comment:Testing performed by : [place], MCHC 33.9 32.3 - 35.7 g/dL [facility] ([place]) Comment:Testing performed by : [place], RDW CV 13.0 11.1 - 14.9 % [facility] ([place]) Comment:Testing performed by : [place], RDW SD 43.1 35.7 - 48.1 fL [facility] ([place]) Comment:Testing performed by : [place], NRBC abs 0.00 0.00 - 0.01 K/cumm [facility] ([place]) Comment:Testing performed by : [place], Blood 12/12/2024 1:05 PM CDT 12/12/2024 1:54 PM CDT Jose Rajput MD LAB BLOOD ORDERABLES Final Result [facility] ([place]) [address] [facility] [place] [address] * CRP (acute phase) (12/12/2024 1:05 PM CDT) CRP <3.0 <=10.0 mg/L Comment:Testing performed by : [place], [address] Blood 12/12/2024 1:05 PM CDT 12/12/2024 1:30 PM CDT us Jose Rajput MD LAB BLOOD ORDERABLES Final Result Performing Organization Address [facility] Co de Phone Number [facility] ([place]) [address] [place] [address] Department [place] [address] * Comprehensive metabolic panel (12/12/2024 1:05 PM CDT) Sodium 137 135 - 145 mmol/L Comment:Testing performed by : [place], [address] Potassium, pl 4.3 3.3 - 4.9 mmol/L [facility] ([place]) Comment:Testing performed by : [place], [address] Chloride 100 97 - 110 mmol/L [facility] ([place]) Comment:Testing performed by : [place], [address] CO2 24 22 - 32 mmol/L [facility] ([place]) Comment:Testing performed by : [facility], [place], [address] Anion gap 13 2 - 15 mmol/L [facility] ([place]) Comment:Testing performed by : [place], [address] BUN 9 6 - 25 mg/dL [facility] ([place]) Comment:Testing performed by : [facility], [place], [address] Creatinine 0.68 0.60 - 1.10 mg/dL [facility] ([place]) Comment:Testing performed by : [facility], [place], [address] Glucose 89 70 - 199 mg/dL [facility] [...] was last revised 2022. Testing performed by: [facility], [place], [address] Calcium 9.6 8.5 - 10.3 mg/dL [facility] ([place]) Comment:Testing performed by : [facility], [place], [address] Bilirubin, total 0.2 0.1 - 1.2 mg/dL [facility] ([place]) Comment:Testing performed by : [facility], [place], [address] Protein, pl 7.3 6.5 - 8.5 g/dL [facility] ([place]) Comment:Testing performed by : [facility], [place], [address] Albumin 4.2 3.5 - 5.0 g/dL [facility] ([place]) Comment:Testing performed by : [facility], [place], [address] Alk phos 73 40 - 130 Units/L [facility] ([place]) Comment:Testing performed by : [facility], [place], [address] ALT 18 7 - 45 Units/L [facility] ([place]) Comment:Testing performed by : [facility], [place], [address] AST 25 10 - 45 Units/L [facility] ([place]) Comment: Slightly Hemolyzed Specimen Testing performed by: [facility], [address] [facility], [place], [address] Blood Venous blood specimen / Unknown 12/12/2024 1:05 PM CDT 12/12/2024 1:30 PM CDT us Jose Rajput MD LAB BLOOD ORDERABLES Final Result [facility] ([place]) [address] [facility] Department [place] [address] * XR Spine Lumbar 2 or 3 [...] Johann Maravilla M.D. MF: ANSON Report ID: [id number] Reading Location: [id number] Procedure Note Johann Maravilla MD - 11/14/2024 [...] Johann Maravilla M.D. MF: ANSON Report ID: [id number] Reading Location: [id number] us Monalisa Mendez EXTERIOR INTERIOR SPECIALIST IMG XR PROCEDURES Final Resu lt * [...] MD LAB BLOOD ORDERABLES Final Result [facility] ([place]) [address] [facility] [place] [address] * Differential, auto (10/24/2024 7:20 AM CDT) Neutrophil abs 2.87 1.50 - 6.50 K/cumm Imm gran abs 0.02 0.00 - 0.10 K/cumm [facility] ([place]) Lymphocyte abs 2.00 0.80 - 3.30 K/cumm [facility] ([place]) Monocyte abs 0.38 0.20 - 0.80 K/cumm [facility] ([place]) Eosinophil abs 0.08 0.00 - 0.50 K/cumm [facility] ([place]) Basophil abs 0.07 0.00 - 0.10 K/cumm [facility] ([place]) Neutrophil pct 52.9 % [facility] ([place]) Comment: Interpretive Data Percent cell count reference ranges are not reported, since discordance with absolute values may lead to misinterpretation of CBC data. Current Interpretive Data was last revised on 2017. Imm gran pct 0.4 % [facility] ([place]) Comment: Interpretive Data [...] 2017. Monocyte pct 7.0 % [facility] ([place]) Comment: Interpretive Data Percent cell count reference ranges are not reported, since discordance with absolute values may lead to misinterpretation of CBC data. Current Interpretive Data was last revised on 2017. Eosinophil pct 1.5 % [facility] ([place]) Comment: Interpretive [...] LAB BLOOD ORDERABLES Final Result [facility] ([place]) [address] [facility] [place] [address] * TB test, quantiferon gold (10/24/2024 7:20 AM CDT) [facility] Quantiferon TB Gold Negative Negative [place] [facility] Comment: No interferon-gamma response to M. [...] [facility] ([place]) Comment: Test Performed by: [place] [address] [employer] Software Developer: Shanda Hankins Ph.D.; CLIA# [id number] Blood 10/24/2024 7:20 AM CDT 10/24/2024 7:40 AM CDT Jose Rajput MD LAB BLOOD ORDERABLES Final Result [facility] ([place]) [address] [facility] Department [place] [address] [place] [facility] * CBC with auto differential (10/24/2024 7:20 AM CDT) [facility] WBC 5.42 3.80 - 9.90 K/cumm Hgb [...] NRBC abs 0.00 0.00 - 0.01 K/cumm [facility] Blood 10/24/2024 7:20 AM CDT 10/24/2024 7:40 AM CDT us Jose Rajput MD LAB BLOOD ORDERABLES Final Result [facility] ([place]) [address] [facility] [place] [address] * Hepatitis B core antibody, total Blood (10/24/2024 7:20 AM CDT) Hep B core IgG/IgM Nonreactive Nonreactive Comment:Testing performed by : [facility], [address] [facility] [address] Blood 10/24/2024 7:20 AM CDT 10/24/2024 9:59 AM CDT Jose Rajput MD LAB MICROBIOLOGY - GENERAL ORDERABLES Final Result [facility] ([place]) [address] [facility] [place] [address] * Hepatitis B surface antibody (immune status) [...] last revised on 19. Testing performed by: [facility], [address] [place] [address]., [address] Blood 10/24/2024 7:20 AM CDT 10/24/2024 9:54 AM CDT Jose Rajput MD LAB MICROBIOLOGY - GENERAL ORDERABLES Final Result [facility] ([facility]) [address] [place] [address] [place] [address] * Hepatitis B Surface Antigen Blood (10/24/2024 7:20 AM CDT) HepBsAg Nonreactive Nonreactive Comment:Testing performed by : [facility], [address] [place] [address]., [address] Blood 10/24/2024 7:20 AM CDT 10/24/2024 9:54 AM CDT Jose Rajput MD LAB MICROBIOLOGY - GENERAL ORDERABLES Final Result [facility] ([place]) [address] [facility] [place] [address] * CRP (acute phase) (10/24/2024 7:20 AM CDT) CRP <3.0 <=10.0 mg/L Blood 10/24/2024 7:20 AM CDT 10/24/2024 7:40 AM CDT us Jose Rajput MD LAB BLOOD ORDERABLES Final Result [facility] ([place]) [address] [facility] [place] [address] * Comprehensive metabolic panel (10/24/2024 7:20 AM CDT) Sodium 140 135 - 145 mmol/L Potassium, pl 4.2 3.3 - 4.9 mmol/L [facility] ([place]) Chloride 104 97 - 110 mmol/L [facility] ([place]) CO2 24 22 - 32 mmol/L [facility] ([place]) Anion gap 12 2 - 15 mmol/L [facility] ([place]) BUN 12 6 - 25 mg/dL [facility] ([place]) Creatinine 0.74 0.60 - 1.10 mg/dL [facility] ([place]) Glucose 85 70 - 199 mg/dL [facility] ([place]) [...] classification and Diagnosis of Diabetes Diabetes Care 202; 46: S19-S40. Current interpretive data was last [...] LAB BLOOD ORDERABLES Final Result [facility] ([place]) [address] [facility] [place] [address] * Screening Mammogram (10/18/2017 1:12 PM CDT) Anatomical Region Laterality Modality Breast N/A Mammography 10/18/2017 1:12 PM CDT Narrative 10/21/2017 2:41 PM CDT KHOI MALDONADO M.D. FINAL REPORT ACC# Date Time Exam [id number] Oct 18, 2017 08:12:00 [facility] [address] Scr Mamm yasmine [employer] inc CAD Technologist(s): Taya Alberts; ; EXAMINATION: Mammogram Technique: Bilateral Full-Field Digital Screening Mammogram was performed. Views obtained: bilateral craniocaudal and bilateral mediolateral oblique. Computer Aided Detection was performed. Mammogram Findings: The present examination has been compared to prior imaging studies performed on 11/19/2011 and 01/15/2013, and at [facility] on 09/07/2016. The breasts are heterogeneously dense, which may obscure small masses. There is no suspicious abnormality in either breast. IMPRESSION: Annual screening mammography is recommended. OVERALL FINAL ASSESSMENT: BI-RADS CATEGORY 1: Negative. Requested By: Elsy Pisano Dictated By: KHOI MALDONADO M.D. on Oct 21 2017 9:41A This document has been electronically signed by: KHOI MALDONADO M.D. on Oct 21 2017 9:41A [id number] MALDONADO M.D. FINAL REPORT Attending: ELSY PISANO Requesting: Elsy Pisano Requesting Fax: Attending Fax: Attending ID: [id number] Requesting ID: [id number] Report To 1 ID: [id number] Report To 1 Name: , Report To 1 FAX: NextGen Order #: Procedure Note Miscellaneous, Not In File - 10/21/2017 KHOI MALDONADO M.D. FINAL REPORT ACC# Date Time Exam [id number] Oct 18, 2017 08:12:00 [facility] [address] Scr Mamm [employer] CAD Technologist(s): Taya Alberts; ; EXAMINATION: Mammogram Technique: Bilateral Full-Field Digital Screening Mammogram was performed. Views obtained: bilateral craniocaudal and bilateral mediolateral oblique. Computer Aided Detection was performed. Mammogram Findings: The present examination has been compared to prior imaging studies performed on 11/19/2011 and 01/15/2013, and at [facility] on 09/07/2016. The breasts are heterogeneously dense, which may obscure small masses. There is no suspicious abnormality in either breast. IMPRESSION: Annual screening mammography is recommended. OVERALL FINAL ASSESSMENT: BI-RADS CATEGORY 1: Negative. Requested By: Elsy Pisano Dictated By: KHOI MALDONADO M.D. on Oct 21 2017 9:41A This document has been electronically signed by: KHOI MALDONADO M.D. on Oct 21 2017 9:41A [id number] MALDONADO M.D. FINAL REPORT Attending: ELSY PISANO Requesting: Elsy Pisano Requesting Fax: Attending Fax: Attending ID: [id number] Requesting ID: [id number] Report To 1 ID: [id number] Report To 1 Name: , Report To 1 FAX: NextGen Order #: Elsy Pisano EXTERIOR INTERIOR SPECIALIST IMG MAMMO PROCEDURES Final R esult * COLONOSCOPY REPORT (07/24/2014) Anatomical Region Laterality Modality Other Narrative 07/24/2014 Ordered by an unspecified provider. Historical Provider GI PROCEDURE ORDERABLES F inal Result from Last 3 Months or Most Recently Relevant to Health Maintenance Insurance [facility] [place] MEDICAID [facility] Advance Directives For more information, please contact: [phone] * Full Code (Latest Code Status on File) Date Activated Date Inactivated Comments 12/21/2024 10:47 AM 12/21/2024 4:29 PM * Full Code Date Activated Date Inactivated Comments 05/26/2023 7:57 AM 05/26/2023 1:57 PM Care Teams Human Resources Executive Assistant Relationship Specialty Start Date End Date Monalisa Mendez NP [address] [place] [address] PCP - General 02/05/21 Pricilla Hernandez MD Referring Physician Gastroenterology 08/21/18
--- OUTSIDE RECORDS SUMMARY | 2024-12-31 15:41 | XMS_ITS | Clinical Summary ---
Author Organization [facility] Address [address] [facility] [place] [address] Phone Care Team Providers Care Senior Portfolio Manager Name Role Phone Elsy Mishra Idris ALONSO Primary Care Provider Allergies No known active allergies Medications Loratadine 10 MG Capsule Take by mouth. Acti ve clobetasol (TEMOVATE) 0.05 % Cream Apply 2 times daily. Active estradiol (ESTRACE) 1 MG Tablet Take 1 mg by mouth daily. Hazardous: Medication requires special safe handling and disposal. Active fluticasone (FLONASE) 50 MCG/ACT Suspension 1-2 Sprays by Nasal route daily. Use in each nostril as directed. Active Social History Tobacco Use Types Packs/Day Years Used Date Smoking Tobacco: Never Smokeless Tobacco: Never Comments Unknown Sex and Gender Information Value Date Recorded Sex Assigned at Not on file Legal Sex Female 8:45 PM CDT Gender Identity Not on file Sexual Orientation Not on file Last Filed Vital Signs Vital Sign Reading Time Taken Comments Blood Pressure - - Pulse - - Temperature - - Respiratory Rate - - Oxygen Saturation - - Inhaled Oxygen Concentration - - Weight - - Height 167.6 cm (5' 6) 04/27/2019 8:16 AM CDT Body Mass Index - - Plan of Treatment Health Maintenance Due Date Last Done Comments Hepatitis C Virus (HCV) Screening 1973 TdaP Immunization 1973 Hepatitis B Immunization (1 of 3 - 19+ 3-dose series) 1992 Cologuard 2018 Colonoscopy 2018 Colorectal Cancer Screening 2018 Immunochemical Fecal Occult Blood 2018 Pneumococcal Immunization (5 0+ years) (1 of 1 - PCV) 2023 Zoster Immunization (1 of 2) 2023 SARS-COV-2 Immunization (4 - season) 2024 07/10/2021, 10/18/2020, 09/20/2020 Influenza Immunization (Seas on Ended) 2025 09/28/2016, 05/03/2014 Respiratory Syncytial Virus (RSV) Immunization (Adult) (1 - 1-dose 75+ series) 2048 Human Papillomavirus (HPV) Immunization Aged Out No longer eligible b ased on patient's age to complete this topic Meningococcal Immunization (ACWY) Aged Out No longer eligible b ased on patient's age to complete this topic Rotavirus Immunization Aged Out No lo nger eligible based on patient's age to complete this topic Insurance MEDICAID [employer] Care Teams Senior Portfolio Manager Relationship Specialty Start Date End Date Elsy Mishra APRN [address] [place] [address] [address] [place] [address] PCP - General Family Medicine 01/09/19
--- OUTSIDE RECORDS SUMMARY | 2024-12-31 15:45 | XMS_ITS | CONTINUITY OF CARE DOCUMENT ---
Author Name jesús, jenniferluis antonio Address Unknown Organization [facility] Address [address] [facility] [place] [address] Phone [phone] Care Team Providers Care Farm Equipment Technician Name Role Phone Lucila Rosas MD Unavailable BANAL AIRPLANE NAVIGATOR-C, EMIGDIO L Unavailable BANAL AIRPLANE NAVIGATOR-C, EMIGDIO L Unavailable [phone] PROBLEMS Condition Status Date Provider Notes Ulcerative [...] In-person encounter Office Visit Lucila Rosas MD [facility] Chest pain-calc score 0, nml LV func on echo 02/09Dizziness- <50% b/l carotidsPalpitations- no significant arrhythmias 02/09 - In-person encounter Office Visit Lucila Rosas MD [facility] Ulcerative colitisChest pain-calc score 0, nml [...] rea Mcknight oxygen saturation, oximetry 98 % Brooks Mcknight respiratory rate E&M 16 /min Andrew Mcknight pulse rate 82 /min Andrew Mcknight weight E&M 131 [lb_av] Brooks Mcknight height E&M 66 [in_i] Andrew Mcknight [...] 3 TABLETS BY MOUTH 4 TIMES DAILY Brooks Mcknight #360, 30 days supply, Prescribed by GOPAL OCHOA, Filled 10/03/2018 FLUTICASONE PROPIONATE 50 MCG/ACT NASAL SUSPENSION active INHALE 2 SPRAYS INTO EACH NOSTRIL EVERY DAY Brooks Mcknight #16, 30 days supply, Prescribed by ECHO ARDON, Filled 11/26/2018 ALLERGY 10 MG ORAL TABLET active TAKE 1 TABLET BY MOUTH EVERY DAY Brooks Mcknight #30, 30 days supply, Prescribed by [...] Payer name Policy type / Coverage type [place] [employer] green party ID [place] MEDICA[place] (2) Medicaid [id number] ADVANCE DIRECTIVES Name Date DISCUSSED - NO [...]
== END 2024-12-31 15:01 | disposition home or self-care (01) ==
PROVIDERS: Emergency Provider Nurse Practitioner; PCP Nurse Practitioner Family
DX: L03.113 Cellulitis of right upper limb (principal)
CPT/HCPCS: 99213; G0463